=== PATIENT | male | born 1975 | race Caucasian/White ===

== ENCOUNTER 2017-02-17 10:01 | Emergency (ER) | payer OTHER ==
--- NOTE | 2017-02-17 10:40 | DIAGNOSTIC IMAGING REPORT ---
PROCEDURE: XR CHEST 1 VIEW INDICATION: SHORTNESS OF BREATH TECHNIQUE: Portable AP view 10:30 a.m. COMPARISON: None. FINDINGS: Patchy right lower lobe infiltrate Heart and mediastinum are normal. Thorax is normal. IMPRESSION: 1. Patchy right lower lobe infiltrate.
--- NOTE | 2017-02-17 11:14 | ED ORDER SUMMARY ---
..... Patient: CARLA NEAL OrderSheet [facility] VisitID: [id number] [address] [place] [address] 41y, M Registration Date/Time: 02/17/2017 ORDER SHEET Weight: 90.7 kg (stated) Allergies: No Known Drug Allergy GENERAL ORDERS: Chest 1V Urgent (10:02/17/2017 Latia Gilbert) (10:34 JBoardley R.N.) MEDICATION ORDERS: DuoNeb Neb Tx 1 unit dose (NOW) (10:02/17/2017 Latia Gilbert) (Ack 10:26 JBoardley R.N.) (10:34 JBoardley R.N.) Prednisone PO 40 mg (NOW) (10:02/17/2017 Latia Gilbert) (Ack 10:26 JBoardley R.N.) (10:34 JBoardley R.N.) Levofloxacin PO 500 mg (NOW) (10:02/17/2017 Latia Gilbert) (Ack 10:26 JBoardley R.N.) (10:34 JBoardley R.N.) IV FLUIDS: ORDER SHEET NOTES: [Electronically signed by Jono Tinsley R.N. (11:02/17/2017)] [Electronically signed by Jerry Kinney Dr. (21:41 02/17/2017)] [Electronically locked/signed by Jono Tinsley R.N. (:02/17/2017)]
--- NOTE | 2017-02-17 11:14 | ED NURSING NOTES ---
Clinical Report - Nurses [facility] [address] [place] [address] 02/17/2017 10:02 Patient: CARLA NEAL TRIAGE Triage time 10:06. Acuity: LEVEL 4. Chief Complaint: COUGH. 10:06 02/17/17. 10:02/17/17. Alert. No acute distress. SEPSIS SCREEN: Sepsis Screen. Negative (no infection suspected/documented). RAY COMA SCORE: Ray Coma Scale: 15- eyes open spontaneously (4); best verbal response- oriented x 4 (5); best motor response- obeys commands (6). --10:09 Jono Tinsley R.N. 10:06 02/17/17. BP: 164/88. HR: 81. RR: 16. O2 saturation: 98% on room air. Temp: 98 F (oral). Pain level now: 0/10. --10:09 Jono Tinsley R.N. Weight: 90.7 kg stated. Height/Length: 72 inches Per Patient. BMI: 27.1. --10:07 Jono Tinsley R.N. Medications Methadone HCl Oral 112mg, daily. --10:08 Jono Tinsley R.N. Medication/allergy information source: the patient. --10:09 Jono Tinsley R.N. Allergies No Known Drug Allergy. --10:08 Jono Tinsley R.N. History Arrived by private vehicle. Historian: patient. Unaccompanied. Primary physician (NONE). 10:06 02/17/17. ( Wednesday). 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 PAST MEDICAL HX: Immunizations not up to date. SOCIAL HX: Current every day heavy tobacco smoker (cigarette)- less than 1 pack per day. History of drug use. (methadone). No alcohol use. No infectious disease exposure. ABUSE ASSESSMENT: No report of abuse. FALL RISK ASSESSMENT: Fall risk assessment completed. No fall risk identified. NUTRITIONAL RISK ASSESSMENT: The nutritional risk assessment revealed no deficiencies. FUNCTIONAL ASSESSMENT: Functional assessment: no impairments noted. LEARNING NEEDS ASSESSMENT: The learning needs assessment revealed no barriers. SKIN INTEGRITY ASSESSMENT: Skin integrity risk assessment completed. No skin integrity risk identified. --10:09 Jono Tinsley R.N. PROBLEMS: Lifestyle / Substance Problems. Cellulitis. Immunizations. Lacerated kidney. Substance Abuse. Hypertension. Tetanus Status. --10:09 Jono Tinsley R.N. Abscess [Resolved]. --10:09 Jono Tinsley R.N. ADDITIONAL SURGERIES: Back Surgery. --10:09 Jono Tinsley R.N. Assessment 10:02/17/17. --10:09 Jono Tinsley R.N. Interventions 10:02/17/17. 10:02/17/17. ID and allergy band on patient. To treatment room. --10:09 Jono Tinsley R.N. PHYSICAL ASSESSMENT 10:02/17/17. Ambulatory to room. GENERAL / NEURO / PSYCH: Alert. Oriented X 4. Appears in no acute distress. RESPIRATORY: Mild respiratory distress. The patient can speak in full sentences. CVS: Capillary refill less than 2 seconds. SKIN: Skin is warm and dry. Skin is diaphoretic. --10:10 Jono Tinsley R.N. NURSING PROGRESS NOTES 10:02/17/17. The plan of care for this patient has been created. Patient gowned. Head of bed elevated. Reassurance given. Call light placed in reach. Side rails up x 2. Bed placed in lowest position. Brakes of bed on. --10:10 Jono Tinsley R.N. 10:02/17/17. Patient ready for evaluation- chart flagged and notification provided. --10:10 Jono Tinsley R.N. 10:29 02/17/2017 Duoneb (Ipratropium-Albuterol) Neb TX 1 unit dose given. Given by the nurse. Allergies verified and confirmed 5 rights. --10:34 Jono Tinsley R.N. 10:34 02/17/2017 Prednisone PO 40 mg given. Allergies verified and confirmed 5 rights. --10:34 Jono Tinsley R.N. 10:34 02/17/2017 Levofloxacin PO 500 mg given. Allergies verified and confirmed 5 rights. --10:34 Jono Tinsley R.N. 10:34 02/17/17. ( X-ray completed). --10:34 Jono Tinsley R.N. 10:36 02/17/17. Pulse oximeter and NIBP monitor placed on patient; monitor alarms on. --10:36 Jono Tinsley R.N. 10:35 02/17/17. BP: 130/78. HR: 69. RR: 18. O2 saturation: 99% on room air. Temp: 98.1 F (oral). Pain level now: 0/10. --10:36 Jono Tinsley R.N. 10:52 02/17/17. --10:52 Jono Tinsley R.N. 10:52 02/17/17. BP: 134/72. HR: 74. RR: 18. O2 saturation: 99% on room air. --10:52 Jono Tinsley R.N. 10:53 02/17/17. Reassessment after medication administered. Overall patient status is improved- he states feels better. --10:53 Jono Tinsley R.N. DISPOSITION / DISCHARGE 11:20 02/17/17. Departure time: 11:21. Condition at departure: improved. The goals identified in the patient's plan of care were met. No learning barriers present. Discharge instructions provided and reviewed with the patient. Reviewed warnings. Reviewed medication(s). Treatments reviewed. Patient verbalized understanding. Written instructions provided in [place]. The patient was discharged by the physician. He was discharged home and unaccompanied at time of discharge. He left the Emergency Department ambulatory and via private vehicle. Patient driving. FALL RISK ASSESSMENT: Fall risk assessment completed. No fall risk identified. --11:21 Jono Tinsley R.N. 11:20 02/17/17. BP: 143/71. HR: 80. RR: 14. O2 saturation: 100% on room air. Temp: 98.2 F (oral). Pain level now: 0/10. --11:21 Jono Tinsley R.N. Locked/Released at 02/17/2017 11:26 by Jono Tinsley R.N.
--- NOTE | 2017-02-17 11:14 | ED CLINICAL REPORT ---
Clinical Report - Physicians/Mid Levels [facility] [address] [place] [address] 02/17/2017 10:02 Patient: CARLA NEAL Time Seen: 10:07; initial patient contact. Arrived- By private vehicle. Historian- patient. HISTORY OF PRESENT ILLNESS Chief Complaint: COUGH. This started about 3 days ago and is still present (persistent). It was gradual in onset and has been constant. The illness is described as moderate. The patient has had sputum production, a cough, difficulty breathing and chills. No chest discomfort or pain, fever or nasal congestion or discharge. No sinus drainage. Additional history - No known contact with a sick individual. Similar symptoms previously: None. Recent medical care: Not recently seen/assessed. REVIEW OF SYSTEMS No pedal edema, calf pain or skin rash. All systems otherwise negative, except as recorded above. PAST HISTORY Lifestyle / Substance Problems. Cellulitis. Immunizations. Lacerated kidney. Substance Abuse. Hypertension. Abscess ADDITIONAL SURGERIES: Back Surgery. SOCIAL HISTORY Current every day smoker. History of drug use. Is a recovering addict. No alcohol use. ADDITIONAL NOTES The nursing notes have been reviewed. PHYSICAL EXAM Vital Signs: 02/17/2017 10:06 BP: 164/88. HR: 81. RR: 16. O2 saturation: 98%. Temp: 98 F. Pain level now: 0/10. Have been reviewed. Hypertensive. Heart rate normal. Respiratory rate normal. Temperature normal. Oxygen saturation normal. Appearance: Alert. No acute distress. Eyes: Eyes normal inspection. ENT: Pharynx normal. Neck: No JVD. CVS: Normal heart rate and rhythm. Heart sounds normal. Respiratory: Mild respiratory distress with accessory muscle use. Moderately prolonged expirations. Mildly decreased breath sounds diffusely over both lungs. Expiratory moderate bilateral wheezes diffusely. No rales or rhonchi. Skin: Normal skin color. No rash. Extremities: No calf tenderness. No lower extremity edema. Neuro: Oriented X 3. LABS, X-RAYS, AND EKG Chest X-ray: Infiltrate in the right lower lobe. Consistent with pneumonia. Views: AP. Technique: good. The X-rays were independently viewed by me and interpreted contemporaneously by me. Prior films were not available for comparison. Interpretation time: 11:04. PROGRESS AND PROCEDURES Course of Care: Prednisone 40 mg PO given. Levofloxacin 500 mg PO given. DuoNeb nebulizer treatment (1 unit dose) given. Physical exam findings are improved. Symptoms much better. Disposition: Discharged home in good and improved condition. Condition: good. CLINICAL IMPRESSION Bacterial pneumonia. Empiric antibiotics given in the ED and prescribed. No hypoxemia, respiratory failure or sepsis. Acute exacerbation of COPD (emphysematous) INSTRUCTIONS Do not smoke. Seek medical help to quit smoking. Your Current Medications: CONTINUE TAKING THE FOLLOWING MEDICATIONS: Methadone HCl Oral : 112mg daily. Prescription Medications: Levaquin 750 mg: take 1 tab orally every day for 6 days. No refills. Substitution is permissible. (Start on 02/18/17) Albuterol HFA oral inhaler: inhale 2 puffs every 4 hours as needed for wheezing, difficulty breathing or shortness of breath. Dispense one (1) unit. No refill. Prednisone 20 mg: take 2 orally every day for 4 days. Dispense sufficient quantity. No refills. (Start on 02/18/17) Follow-up: Screening today revealed the patient's blood pressure to be in the pre-hypertensive range. The patient should follow up with a primary care provider for blood pressure management. Follow-up with: [facility], , , [address], [facility], [id number] Follow up in two days. Call for an appointment. (Electronically signed by Jerry Kinney Dr. 02/17/2017 21:41)
--- NOTE | 2017-02-17 11:14 | ED ORDER SUMMARY ---
..... Patient: CARLA NEAL OrderSheet [facility] VisitID: [id number] [address] [place] [address] 41y, M Registration Date/Time: 02/17/2017 ORDER SHEET Weight: 90.7 kg (stated) Allergies: No Known Drug Allergy GENERAL ORDERS: Chest 1V Urgent (10:02/17/2017 Latia Gilbert) (10:34 JBoardley R.N.) MEDICATION ORDERS: DuoNeb Neb Tx 1 unit dose (NOW) (10:02/17/2017 Latia Gilbert) (Ack 10:26 JBoardley R.N.) (10:34 JBoardley R.N.) Prednisone PO 40 mg (NOW) (10:02/17/2017 Latia Gilbert) (Ack 10:26 JBoardley R.N.) (10:34 JBoardley R.N.) Levofloxacin PO 500 mg (NOW) (10:02/17/2017 Latia Gilbert) (Ack 10:26 JBoardley R.N.) (10:34 JBoardley R.N.) IV FLUIDS: ORDER SHEET NOTES: [Electronically signed by Jono Tinsley R.N. (11:02/17/2017)] [Electronically signed by Jerry Kinney Dr. (21:41 02/17/2017)] [Electronically locked/signed by Jono Tinsley R.N. (:02/17/2017)]
--- NOTE | 2017-02-17 11:14 | ED NURSING NOTES ---
Clinical Report - Nurses [facility] [address] [place] [address] 02/17/2017 10:02 Patient: CARLA NEAL TRIAGE Triage time 10:06. Acuity: LEVEL 4. Chief Complaint: COUGH. 10:06 02/17/17. 10:02/17/17. Alert. No acute distress. SEPSIS SCREEN: Sepsis Screen. Negative (no infection suspected/documented). RAY COMA SCORE: Ray Coma Scale: 15- eyes open spontaneously (4); best verbal response- oriented x 4 (5); best motor response- obeys commands (6). --10:09 Jono Tinsley R.N. 10:06 02/17/17. BP: 164/88. HR: 81. RR: 16. O2 saturation: 98% on room air. Temp: 98 F (oral). Pain level now: 0/10. --10:09 Jono Tinsley R.N. Weight: 90.7 kg stated. Height/Length: 72 inches Per Patient. BMI: 27.1. --10:07 Jono Tinsley R.N. Medications Methadone HCl Oral 112mg, daily. --10:08 Jono Tinsley R.N. Medication/allergy information source: the patient. --10:09 Jono Tinsley R.N. Allergies No Known Drug Allergy. --10:08 Jono Tinsley R.N. History Arrived by private vehicle. Historian: patient. Unaccompanied. Primary physician (NONE). 10:06 02/17/17. ( Wednesday). 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 PAST MEDICAL HX: Immunizations not up to date. SOCIAL HX: Current every day heavy tobacco smoker (cigarette)- less than 1 pack per day. History of drug use. (methadone). No alcohol use. No infectious disease exposure. ABUSE ASSESSMENT: No report of abuse. FALL RISK ASSESSMENT: Fall risk assessment completed. No fall risk identified. NUTRITIONAL RISK ASSESSMENT: The nutritional risk assessment revealed no deficiencies. FUNCTIONAL ASSESSMENT: Functional assessment: no impairments noted. LEARNING NEEDS ASSESSMENT: The learning needs assessment revealed no barriers. SKIN INTEGRITY ASSESSMENT: Skin integrity risk assessment completed. No skin integrity risk identified. --10:09 Jono Tinsley R.N. PROBLEMS: Lifestyle / Substance Problems. Cellulitis. Immunizations. Lacerated kidney. Substance Abuse. Hypertension. Tetanus Status. --10:09 Jono Tinsley R.N. Abscess [Resolved]. --10:09 Jono Tinsley R.N. ADDITIONAL SURGERIES: Back Surgery. --10:09 Jono Tinsley R.N. Assessment 10:02/17/17. --10:09 Jono Tinsley R.N. Interventions 10:02/17/17. 10:02/17/17. ID and allergy band on patient. To treatment room. --10:09 Jono Tinsley R.N. PHYSICAL ASSESSMENT 10:02/17/17. Ambulatory to room. GENERAL / NEURO / PSYCH: Alert. Oriented X 4. Appears in no acute distress. RESPIRATORY: Mild respiratory distress. The patient can speak in full sentences. CVS: Capillary refill less than 2 seconds. SKIN: Skin is warm and dry. Skin is diaphoretic. --10:10 Jono Tinsley R.N. NURSING PROGRESS NOTES 10:02/17/17. The plan of care for this patient has been created. Patient gowned. Head of bed elevated. Reassurance given. Call light placed in reach. Side rails up x 2. Bed placed in lowest position. Brakes of bed on. --10:10 Jono Tinsley R.N. 10:02/17/17. Patient ready for evaluation- chart flagged and notification provided. --10:10 Jono Tinsley R.N. 10:29 02/17/2017 Duoneb (Ipratropium-Albuterol) Neb TX 1 unit dose given. Given by the nurse. Allergies verified and confirmed 5 rights. --10:34 Jono Tinsley R.N. 10:34 02/17/2017 Prednisone PO 40 mg given. Allergies verified and confirmed 5 rights. --10:34 Jono Tinsley R.N. 10:34 02/17/2017 Levofloxacin PO 500 mg given. Allergies verified and confirmed 5 rights. --10:34 Jono Tinsley R.N. 10:34 02/17/17. ( X-ray completed). --10:34 Jono Tinsley R.N. 10:36 02/17/17. Pulse oximeter and NIBP monitor placed on patient; monitor alarms on. --10:36 Jono Tinsley R.N. 10:35 02/17/17. BP: 130/78. HR: 69. RR: 18. O2 saturation: 99% on room air. Temp: 98.1 F (oral). Pain level now: 0/10. --10:36 Jono Tinsley R.N. 10:52 02/17/17. --10:52 Jono Tinsley R.N. 10:52 02/17/17. BP: 134/72. HR: 74. RR: 18. O2 saturation: 99% on room air. --10:52 Jono Tinsley R.N. 10:53 02/17/17. Reassessment after medication administered. Overall patient status is improved- he states feels better. --10:53 Jono Tinsley R.N. DISPOSITION / DISCHARGE 11:20 02/17/17. Departure time: 11:21. Condition at departure: improved. The goals identified in the patient's plan of care were met. No learning barriers present. Discharge instructions provided and reviewed with the patient. Reviewed warnings. Reviewed medication(s). Treatments reviewed. Patient verbalized understanding. Written instructions provided in [place]. The patient was discharged by the physician. He was discharged home and unaccompanied at time of discharge. He left the Emergency Department ambulatory and via private vehicle. Patient driving. FALL RISK ASSESSMENT: Fall risk assessment completed. No fall risk identified. --11:21 Jono Tinsley R.N. 11:20 02/17/17. BP: 143/71. HR: 80. RR: 14. O2 saturation: 100% on room air. Temp: 98.2 F (oral). Pain level now: 0/10. --11:21 Jono Tinsley R.N. Locked/Released at 02/17/2017 11:26 by Jono Tinsley R.N.
--- NOTE | 2017-02-17 11:14 | ED CLINICAL REPORT ---
Clinical Report - Physicians/Mid Levels [facility] [address] [place] [address] 02/17/2017 10:02 Patient: CARLA NEAL Time Seen: 10:07; initial patient contact. Arrived- By private vehicle. Historian- patient. HISTORY OF PRESENT ILLNESS Chief Complaint: COUGH. This started about 3 days ago and is still present (persistent). It was gradual in onset and has been constant. The illness is described as moderate. The patient has had sputum production, a cough, difficulty breathing and chills. No chest discomfort or pain, fever or nasal congestion or discharge. No sinus drainage. Additional history - No known contact with a sick individual. Similar symptoms previously: None. Recent medical care: Not recently seen/assessed. REVIEW OF SYSTEMS No pedal edema, calf pain or skin rash. All systems otherwise negative, except as recorded above. PAST HISTORY Lifestyle / Substance Problems. Cellulitis. Immunizations. Lacerated kidney. Substance Abuse. Hypertension. Abscess ADDITIONAL SURGERIES: Back Surgery. SOCIAL HISTORY Current every day smoker. History of drug use. Is a recovering addict. No alcohol use. ADDITIONAL NOTES The nursing notes have been reviewed. PHYSICAL EXAM Vital Signs: 02/17/2017 10:06 BP: 164/88. HR: 81. RR: 16. O2 saturation: 98%. Temp: 98 F. Pain level now: 0/10. Have been reviewed. Hypertensive. Heart rate normal. Respiratory rate normal. Temperature normal. Oxygen saturation normal. Appearance: Alert. No acute distress. Eyes: Eyes normal inspection. ENT: Pharynx normal. Neck: No JVD. CVS: Normal heart rate and rhythm. Heart sounds normal. Respiratory: Mild respiratory distress with accessory muscle use. Moderately prolonged expirations. Mildly decreased breath sounds diffusely over both lungs. Expiratory moderate bilateral wheezes diffusely. No rales or rhonchi. Skin: Normal skin color. No rash. Extremities: No calf tenderness. No lower extremity edema. Neuro: Oriented X 3. LABS, X-RAYS, AND EKG Chest X-ray: Infiltrate in the right lower lobe. Consistent with pneumonia. Views: AP. Technique: good. The X-rays were independently viewed by me and interpreted contemporaneously by me. Prior films were not available for comparison. Interpretation time: 11:04. PROGRESS AND PROCEDURES Course of Care: Prednisone 40 mg PO given. Levofloxacin 500 mg PO given. DuoNeb nebulizer treatment (1 unit dose) given. Physical exam findings are improved. Symptoms much better. Disposition: Discharged home in good and improved condition. Condition: good. CLINICAL IMPRESSION Bacterial pneumonia. Empiric antibiotics given in the ED and prescribed. No hypoxemia, respiratory failure or sepsis. Acute exacerbation of COPD (emphysematous) INSTRUCTIONS Do not smoke. Seek medical help to quit smoking. Your Current Medications: CONTINUE TAKING THE FOLLOWING MEDICATIONS: Methadone HCl Oral : 112mg daily. Prescription Medications: Levaquin 750 mg: take 1 tab orally every day for 6 days. No refills. Substitution is permissible. (Start on 02/18/17) Albuterol HFA oral inhaler: inhale 2 puffs every 4 hours as needed for wheezing, difficulty breathing or shortness of breath. Dispense one (1) unit. No refill. Prednisone 20 mg: take 2 orally every day for 4 days. Dispense sufficient quantity. No refills. (Start on 02/18/17) Follow-up: Screening today revealed the patient's blood pressure to be in the pre-hypertensive range. The patient should follow up with a primary care provider for blood pressure management. Follow-up with: [facility], , , [address], [facility], [id number] Follow up in two days. Call for an appointment. (Electronically signed by Jerry Kinney Dr. 02/17/2017 21:41)
--- NOTE | 2017-02-17 21:41 | ED MAR SUMMARY ---
..... Medication Administration Record [facility] [address] [place] [address] Patient: CARLA NEAL Visit ID: [id number] 41y, M Weight: 90.7 kg Height/Length: 72 in BMI: 27.1 ALLERGIES: No Known Drug Allergy Given 10:02/17/2017 Jono Tinsley R.N. Medication Administered: DUONEB [NEB TX] (IPRATROPIUM-ALBUTEROL), Dose: 1 unit dose Neb TX. Medication Ordered: DuoNeb Neb Tx 1 unit dose (NOW). Given 10:02/17/2017 Jono Tinsley R.N. Medication Administered: PREDNISONE [PO], Dose: 40 mg PO. Medication Ordered: Prednisone PO 40 mg (NOW). Given 10:02/17/2017 Jono Tinsley R.N. Medication Administered: LEVOFLOXACIN [PO], Dose: 500 mg PO. Medication Ordered: Levofloxacin PO 500 mg (NOW).
--- NOTE | 2017-02-17 21:41 | ED MAR SUMMARY ---
..... Medication Administration Record [facility] [address] [place] [address] Patient: CARLA NEAL Visit ID: [id number] 41y, M Weight: 90.7 kg Height/Length: 72 in BMI: 27.1 ALLERGIES: No Known Drug Allergy Given 10:02/17/2017 Jono Tinsley R.N. Medication Administered: DUONEB [NEB TX] (IPRATROPIUM-ALBUTEROL), Dose: 1 unit dose Neb TX. Medication Ordered: DuoNeb Neb Tx 1 unit dose (NOW). Given 10:02/17/2017 Jono Tinsley R.N. Medication Administered: PREDNISONE [PO], Dose: 40 mg PO. Medication Ordered: Prednisone PO 40 mg (NOW). Given 10:02/17/2017 Jono Tinsley R.N. Medication Administered: LEVOFLOXACIN [PO], Dose: 500 mg PO. Medication Ordered: Levofloxacin PO 500 mg (NOW).
--- NOTE | 2017-02-17 21:41 | ED MED RECONCILIATION SUMMARY ---
Patient: CARLA NEAL Medication Reconciliation Report [facility] VisitID: [id number] [address] [place] [address] 41y, M Registration Date/Time: 02/17/2017 Weight: 90.7 kg Height/Length: 72 in. BMI: 27.1 ALLERGIES: No Known Drug Allergy The patient's Home Medications are listed below: CONTINUE TAKING THE FOLLOWING MEDICATIONS: Methadone HCl Oral 112mg, daily The source(s) of the original Home Medication information: patient The following Medications were given to the patient in the Emergency Department: Duoneb [Neb Tx] Neb TX 1 unit dose, administered: 02/17/2017 10:29:00 AM Prednisone [PO] PO 40 mg, administered: 02/17/2017 10:34:00 AM Levofloxacin [PO] PO 500 mg, administered: 02/17/2017 10:34:00 AM The following Medications were prescribed to the patient: Levaquin 750 mg: take 1 tab orally every day for 6 days. No refills. Substitution is permissible.(Start on 02/18/17) -- Jerry Kinney Dr. Albuterol HFA oral inhaler: inhale 2 puffs every 4 hours as needed for wheezing, difficulty breathing or shortness of breath. Dispense one (1) unit. No refill. -- Jerry Kinney Dr. Prednisone 20 mg: take 2 orally every day for 4 days. Dispense sufficient quantity. No refills.(Start on 02/18/17) -- Jerry Kinney Dr.
--- NOTE | 2017-02-17 21:41 | ED MED RECONCILIATION SUMMARY ---
Patient: CARLA NEAL Medication Reconciliation Report [facility] VisitID: [id number] [address] [place] [address] 41y, M Registration Date/Time: 02/17/2017 Weight: 90.7 kg Height/Length: 72 in. BMI: 27.1 ALLERGIES: No Known Drug Allergy The patient's Home Medications are listed below: CONTINUE TAKING THE FOLLOWING MEDICATIONS: Methadone HCl Oral 112mg, daily The source(s) of the original Home Medication information: patient The following Medications were given to the patient in the Emergency Department: Duoneb [Neb Tx] Neb TX 1 unit dose, administered: 02/17/2017 10:29:00 AM Prednisone [PO] PO 40 mg, administered: 02/17/2017 10:34:00 AM Levofloxacin [PO] PO 500 mg, administered: 02/17/2017 10:34:00 AM The following Medications were prescribed to the patient: Levaquin 750 mg: take 1 tab orally every day for 6 days. No refills. Substitution is permissible.(Start on 02/18/17) -- Jerry Kinney Dr. Albuterol HFA oral inhaler: inhale 2 puffs every 4 hours as needed for wheezing, difficulty breathing or shortness of breath. Dispense one (1) unit. No refill. -- Jerry Kinney Dr. Prednisone 20 mg: take 2 orally every day for 4 days. Dispense sufficient quantity. No refills.(Start on 02/18/17) -- Jerry Kinney Dr.
--- NOTE | 2017-02-17 21:41 | ED DISCHARGE INSTRUCTIONS ---
Patient: CARLA NEAL General Instructions [facility] VisitID: [id number] [address] [place] [address] 41y, M Registration Date/Time: 02/17/2017 Bacterial pneumonia. Empiric antibiotics given in the ED and prescribed. No hypoxemia, respiratory failure or sepsis. Acute exacerbation of COPD (emphysematous) INSTRUCTIONS Do not smoke. Seek medical help to quit smoking. Your Current Medications: CONTINUE TAKING THE FOLLOWING MEDICATIONS: Methadone HCl Oral : 112mg daily. Prescription Medications: Levaquin 750 mg: take 1 tab orally every day for 6 days. No refills. Substitution is permissible. (Start on 02/18/17) Albuterol HFA oral inhaler: inhale 2 puffs every 4 hours as needed for wheezing, difficulty breathing or shortness of breath. Dispense one (1) unit. No refill. Prednisone 20 mg: take 2 orally every day for 4 days. Dispense sufficient quantity. No refills. (Start on 02/18/17) Follow-up: Screening today revealed the patient's blood pressure to be in the pre-hypertensive range. The patient should follow up with a primary care provider for blood pressure management. Follow-up with: [facility], , , [address], [facility], [id number] Follow up in two days. Call for an appointment. ADDITIONAL INFORMATION COPD Flare Both emphysema and chronic bronchitis are forms of chronic obstructive pulmonary disease (COPD). It is most often caused by many years of smoking tobacco. Many things can make your lung disease suddenly get worse. These causes include the common cold, pneumonia, acute bronchitis, missing doses of your regular breathing medicines, or being around smoke, dust, or other air pollutants. A COPD flare may last 7 to 14 days. Your doctor may prescribe medicineto relax your airways and prevent wheezing. Your doctor may also prescribe antibiotics if he or she thinks you havea bacterial infection. Prednisone can helpease inflammation in a severe attack. Home care Here are things you can do at home: Drink lots of water or other fluids (at least 10 glasses a day) during an attack. This will loosen lung secretions and make it easier to breathe. If you have heart or kidney disease, check with your doctor before you drink extra amounts of fluids. Take prescribed medicine exactly at the times advised. If you have a hand-held inhaler or aerosol breathing medicine, don't use it more than once every 4 hours, unless your doctor tells you to. If you were givenan antibiotic or prednisone, take all of the medicine even if you are feeling better after a few days. Don't smoke. Avoid being aroundthe smoke of others. If you were given an inhaler, use it exactly as directed. If you need to use it more often than prescribed, your condition may be getting worse. Call your doctor. Follow-up care Follow up with your health care provider.If you are 65 or older or have chronic asthma or COPD, you should get a single dose of the pneumococcal vaccine and aflu shot each year. You may need a second dose of the pneumococcal vaccine if you had the first dose at a younger age. Your health care provider will let you know if you need a second dose. For all other people, the usual dose for the pneumococcal vaccine is 1 or 2 shots. Yourprovider can discuss this with you. When to seek medical care Get prompt medical attention ifany of these occur: Increased wheezing or shortness of breath Need to use your inhalers more often than usual without relief Fever of 100.4F(38C) or higher, or as directed by your health care provider Coughing up lots of dark-colored or bloody sputum (mucus) Chest pain with each breath You do not start to improve within 24 hours Pneumonia (Adult) Pneumonia is an infection deep within the lung, in the small air sacs (alveoli). It may be due to a virus or bacteria and is usually treated with an antibiotic. Severe cases require treatment in the hospital. Milder cases can be treated at home. Symptoms usually start to improve during the first2 days of treatment. Home Care: Rest at home for the first 23 days or until you feel stronger. When resuming activity, dont let yourself become overly tired. Avoid exposure to cigarette smoke (yours or others). You may use acetaminophen (Tylenol) or ibuprofen (Motrin, Advil) to control fever or pain, unless another medicine was prescribed. [NOTE: If you have chronic liver or kidney disease or ever had a stomach ulcer or GI bleeding, talk with your doctor before using these medicines.] (Aspirin should never be used in anyone under 18 years of age who is ill with a fever. It may cause severe liver damage.) Your appetite may be poor so a light diet is fine. Keep well hydrated by drinking 68 glasses of fluids per day (water, sport drinks such as Gatorade, sodas without caffeine, juices, tea, soup, etc.). This will help loosen secretions in the lung, making it easier for you to cough up the phlegm (sputum). If you also have heart or kidney disease, check with your doctor before you drink extra amounts of fluids. Finish all antibiotic medicine prescribed, even if you are feeling better after a few days. Follow Up with your doctor in the next 23 days (or as advised) to be sure you are responding properly to the medicine. [NOTE: If you are age 65 or older, or if you have chronic lung disease (asthma, emphysema or COPD), we recommendthe pneumococcal vaccination and a yearlyinfluenzavaccination(flu-shot) every . Ask your doctor about this.] Get Prompt Medical Attention if any of the following occur: Not getting better within the first 48 hours of treatment Increasing shortness of breath or rapid breathing (over 25 breaths/minute) Coughing up blood or increasing chest pain with breathing Fever of 100.4F (38C) oral or higher, not better with fever medication Increasing weakness, dizziness or fainting Increasing thirst or dry mouth Sinus pain, headache or a stiff neck Chest pain not caused by coughing How To Quit Smoking Smoking is one of the hardest habits to break. About half of all those who have ever smoked have been able to quit, and most of those (about 70%) who still smoke want to quit. Here are some of the best ways to stop smoking. Keep Trying: It takes most smokers about 8 tries before they are finally able to fully quit. So, the more often you try and fail, the better your chance of quitting the next time! So, don't give up! Go Cold [place]: Most ex-smokers quit cold turkey. Trying to cut back gradually doesn't seem to work as well, perhaps because it continues the smoking habit. Also, it is possible to fool yourself by inhaling more while smoking fewer cigarettes. This results in the same amount of nicotine in your body! Get Support: Support programs can make an important difference, especially for the heavy smoker. These groups offer lectures, methods to change your behavior and peer support. Call the free national Quitline for more information. 387-HXAX-DVV (642-193-7982). Low-cost or free programs are offered by many hospitals, local chapters of the [place] [employer] (812-528-4272) and the [place] [employer] (279-398-5756). Support at home is important too. Non-smokers can help by offering praise and encouragement. If the smoker fails to quit, encourage them to try again! Uvsi-Hpo-[id number] Medicines: For those who can't quit on their own, Nicotine Replacement Therapy (NRT) may make quitting much easier. Certain aids such as the nicotine patch, gum and lozenge are available without a prescription. However, it is best to use these under the guidance of your doctor. The skin patch provides a steady supply of nicotine to the body. Nicotine gum and lozenge gives temporary bursts of low levels of nicotine. Both methods take the edge off the craving for cigarettes. WARNING: If you feel symptoms of nicotine overdose, such as nausea, vomiting, dizziness, weakness, or fast heartbeat, stop using these and see your doctor. Prescription Medicines: After evaluating your smoking patterns and prior attempts at quitting, your doctor may offer a prescription medicine such as bupropion (Zyban, Wellbutrin), varenicline (Chantix, Champix), a niocotine inhaler or nasal spray. Each has its unique advantage and side effects which your doctor can review with you. Health Benefits Of Quitting: The benefits of quitting start right away and keep improving the longer you go without smokin minutes: blood pressure and pulse return to normal 8 hours: oxygen levels return to normal 2 days: ability to smell and taste begins to improve as damaged nerves start to regrow 2-3 weeks: circulation and lung function improves 1-9 months: decreased cough, congestion and shortness of breath; less tired 1 year: risk of heart attack decreases by half 5 years: risk of lung cancer decreases by half; risk of stroke becomes the same as a non-smoker For information about how to quit smoking, visit the following links: National Cancer [place] , Clearing the Air, Quit Smoking Today - an online booklet. http://www.smokefree.gov/pubs/clearing_the_air.pdf Smokefree.gov http://smokefree.gov/ QuitNet http://www.quitnet.com/ Levofloxacin Oral tablet What is this medicine? LEVOFLOXACIN (mike elisha DANYELLE chaves) is a quinolone antibiotic. It is used to treat certain kinds of bacterial infections. It will not work for colds, flu, or other viral infections. How should I use this medicine? Take this medicine by mouth with a full glass of water. Follow the directions on the prescription label. This medicine can be taken with or without food. Take your medicine at regular intervals. Do not take your medicine more often than directed. Do not skip doses or stop your medicine early even if you feel better. Do not stop taking except on your doctor's advice. A special MedGuide will be given to you by the pharmacist with each prescription and refill. Be sure to read this information carefully each time. Talk to your zoo caretaker regarding the use of this medicine in children. While this drug may be prescribed for children as young as 6 months for selected conditions, precautions do apply. What side effects may I notice from receiving this medicine? Side effects that you should report to your doctor or health district manager primary care sales as soon as possible: -allergic reactions like skin rash or hives, swelling of the face, lips, or tongue -changes in vision -confusion, nightmares or hallucinations -difficulty breathing -irregular heartbeat, chest pain -joint, muscle or tendon pain -pain or difficulty passing urine -persistent headache with or without blurred vision -redness, blistering, peeling or loosening of the skin, including inside the mouth -seizures -unusual pain, numbness, tingling, or weakness -vaginal irritation, discharge Side effects that usually do not require medical attention (report to your doctor or health district manager primary care sales if they continue or are bothersome): -diarrhea -dry mouth -headache -stomach upset, nausea -trouble sleeping What may interact with this medicine? Do not take this medicine with any of the following medications: - arsenic trioxide - chloroquine - droperidol - medicines for irregular heart rhythm like amiodarone, disopyramide, dofetilide, flecainide, quinidine, procainamide, sotalol - some medicines for depression or mental problems like phenothiazines, pimozide, and ziprasidone This medicine may also interact with the following medications: - amoxapine -antacids - cisapride - dairy products - didanosine (ddI) buffered tablets or powder - haloperidol - multivitamins -NSAIDS, medicines for pain and inflammation, like ibuprofen or naproxen - retinoid products like tretinoin or isotretinoin - risperidone - some other antibiotics like clarithromycin or erythromycin - sucralfate - theophylline - warfarin What if I miss a dose? If you miss a dose, take it as soon as you remember. If it is almost time for your next dose, take only that dose. Do not take double or extra doses. Where should I keep my medicine? Keep out of the reach of children. Store at room temperature between 15 and 30 degrees C (59 and 86 degrees F). Keep in a tightly closed container. Throw away any unused medicine after the expiration date. What should I tell my health care provider before I take this medicine? They need to know if you have any of these conditions: cerebral disease irregular heartbeat kidney disease seizure disorder an unusual or allergic reaction to levofloxacin, other antibiotics or medicines, foods, dyes, or preservatives or trying to get breast-feeding What should I watch for while using this medicine? Tell your doctor or health district manager primary care sales if your symptoms do not improve or if they get worse. Drink several glasses of water a day and cut down on drinks that contain caffeine. You must not get dehydrated while taking this medicine. You may get drowsy or dizzy. Do not drive, use machinery, or do anything that needs mental alertness until you know how this medicine affects you. Do not sit or stand up quickly, especially if you are an older patient. This reduces the risk of dizzy or fainting spells. This medicine can make you more sensitive to the sun. Keep out of the sun. If you cannot avoid being in the sun, wear protective clothing and use a sunscreen. Do not use sun lamps or tanning beds/booths. Contact your doctor if you get a sunburn. If you are a diabetic monitor your blood glucose carefully. If you get an unusual reading stop taking this medicine and call your doctor right away. Do not treat diarrhea with kgpm-rrf-xapegly products. Contact your doctor if you have diarrhea that lasts more than 2 days or if the diarrhea is severe and watery. Avoid antacids, calcium, iron, and zinc products for 2 hours before and 2 hours after taking a dose of this medicine. Albuterol Sulfate Pressurized inhalation, suspension What is this medicine? ALBUTEROL (al BYOO ter ole) is a bronchodilator. It helps open up the airways in your lungs to make it easier to breathe. This medicine is used to treat and to prevent bronchospasm. How should I use this medicine? This medicine is for inhalation through the mouth. Follow the directions on your prescription label. Take your medicine at regular intervals. Do not use more often than directed. Make sure that you are using your inhaler correctly. Ask you doctor or health care provider if you have any questions. Talk to your zoo caretaker regarding the use of this medicine in children. Special care may be needed. What side effects may I notice from receiving this medicine? Side effects that you should report to your doctor or health district manager primary care sales as soon as possible: allergic reactions like skin rash, itching or hives, swelling of the face, lips, or tongue breathing problems chest pain feeling faint or lightheaded, falls high blood pressure irregular heartbeat fever muscle cramps or weakness pain, tingling, numbness in the hands or feet vomiting Side effects that usually do not require medical attention (report to your doctor or health district manager primary care sales if they continue or are bothersome): cough difficulty sleeping headache nervousness or trembling stomach upset stuffy or runny nose throat irritation unusual taste What may interact with this medicine? anti-infectives like chloroquine and pentamidine caffeine cisapride diuretics medicines for colds medicines for depression or for emotional or psychotic conditions medicines for weight loss including some herbal products methadone some antibiotics like clarithromycin, erythromycin, levofloxacin, and linezolid some heart medicines steroid hormones like dexamethasone, cortisone, hydrocortisone theophylline thyroid hormones What if I miss a dose? If you miss a dose, use it as soon as you can. If it is almost time for your next dose, use only that dose. Do not use double or extra doses. Where should I keep my medicine? Keep out of the reach of children. Store at room temperature between 15 and 30 degrees C (59 and 86 degrees F). The contents are under pressure and may burst when exposed to heat or flame. Do not freeze. This medicine does not work as well if it is too cold. Throw away any unused medicine after the expiration date. Inhalers need to be thrown away after the labeled number of puffs have been used or by the expiration date; whichever comes first. Ventolin HFA should be thrown away 12 months after removing from foil pouch. Check the instructions that come with your medicine. What should I tell my health care provider before I take this medicine? They need to know if you have any of the following conditions: diabetes heart disease or irregular heartbeat high blood pressure pheochromocytoma seizures thyroid disease an unusual or allergic reaction to albuterol, levalbuterol, sulfites, other medicines, foods, dyes, or preservatives or trying to get breast-feeding What should I watch for while using this medicine? Tell your doctor or health district manager primary care sales if your symptoms do not improve. Do not use extra albuterol. If your asthma or bronchitis gets worse while you are using this medicine, call your doctor right away. If your mouth gets dry try chewing sugarless gum or sucking hard candy. Drink water as directed. Prednisone Oral tablet What is this medicine? PREDNISONE (PRED ni sone) is a corticosteroid. It is commonly used to treat inflammation of the skin, joints, lungs, and other organs. Common conditions treated include asthma, allergies, and arthritis. It is also used for other conditions, such as blood disorders and diseases of the adrenal glands. How should I use this medicine? Take this medicine by mouth with a glass of water. Follow the directions on the prescription label. Take this medicine with food. If you are taking this medicine once a day, take it in the morning. Do not take more medicine than you are told to take. Do not suddenly stop taking your medicine because you may develop a severe reaction. Your doctor will tell you how much medicine to take. If your doctor wants you to stop the medicine, the dose may be slowly lowered over time to avoid any side effects. Talk to your zoo caretaker regarding the use of this medicine in children. Special care may be needed. What side effects may I notice from receiving this medicine? Side effects that you should report to your doctor or health district manager primary care sales as soon as possible: allergic reactions like skin rash, itching or hives, swelling of the face, lips, or tongue changes in emotions or moods changes in vision depressed mood eye pain fever or chills, cough, sore throat, pain or difficulty passing urine increased thirst swelling of ankles, feet Side effects that usually do not require medical attention (report to your doctor or health district manager primary care sales if they continue or are bothersome): confusion, excitement, restlessness headache nausea, vomiting skin problems, acne, thin and shiny skin trouble sleeping weight gain What may interact with this medicine? Do not take this medicine with any of the following medications: metyrapone mifepristone This medicine may also interact with the following medications: aminoglutethimide amphotericin B aspirin and aspirin-like medicines barbiturates certain medicines for diabetes, like glipizide or glyburide cholestyramine cholinesterase inhibitors cyclosporine digoxin diuretics ephedrine female hormones, like estrogens and control pills isoniazid ketoconazole NSAIDS, medicines for pain and inflammation, like ibuprofen or naproxen phenytoin rifampin toxoids vaccines warfarin What if I miss a dose? If you miss a dose, take it as soon as you can. If it is almost time for your next dose, talk to your doctor or health district manager primary care sales. You may need to miss a dose or take an extra dose. Do not take double or extra doses without advice. Where should I keep my medicine? Keep out of the reach of children. Store at room temperature between 15 and 30 degrees C (59 and 86 degrees F). Protect from light. Keep container tightly closed. Throw away any unused medicine after the expiration date. What should I tell my health care provider before I take this medicine? They need to know if you have any of these conditions: Lm's syndrome diabetes glaucoma heart disease high blood pressure infection (especially a virus infection such as chickenpox, cold sores, or herpes) kidney disease liver disease mental illness myasthenia gravis osteoporosis seizures stomach or intestine problems thyroid disease an unusual or allergic reaction to lactose, prednisone, other medicines, foods, dyes, or preservatives or trying to get breast-feeding What should I watch for while using this medicine? Visit your doctor or health district manager primary care sales for regular checks on your progress. If you are taking this medicine over a prolonged period, carry an identification card with your name and address, the type and dose of your medicine, and your doctor's name and address. This medicine may increase your risk of getting an infection. Tell your doctor or health district manager primary care sales if you are around anyone with measles or chickenpox, or if you develop sores or blisters that do not heal properly. If you are going to have surgery, tell your doctor or health district manager primary care sales that you have taken this medicine within the last twelve months. Ask your doctor or health district manager primary care sales about your diet. You may need to lower the amount of salt you eat. This medicine may affect blood sugar levels. If you have diabetes, check with your doctor or health district manager primary care sales before you change your diet or the dose of your diabetic medicine. You have been given the following additional information: COPD Flare Pneumonia (Adult) Smoking Cessation Levofloxacin Oral tablet Albuterol Sulfate Pressurized inhalation, suspension Prednisone Oral tablet (Electronically signed by Jerry Kinney Dr. 02/17/2017 21:41)
--- NOTE | 2017-02-17 21:41 | ED DISCHARGE INSTRUCTIONS ---
Patient: CARLA NEAL General Instructions [facility] VisitID: [id number] [address] [place] [address] 41y, M Registration Date/Time: 02/17/2017 Bacterial pneumonia. Empiric antibiotics given in the ED and prescribed. No hypoxemia, respiratory failure or sepsis. Acute exacerbation of COPD (emphysematous) INSTRUCTIONS Do not smoke. Seek medical help to quit smoking. Your Current Medications: CONTINUE TAKING THE FOLLOWING MEDICATIONS: Methadone HCl Oral : 112mg daily. Prescription Medications: Levaquin 750 mg: take 1 tab orally every day for 6 days. No refills. Substitution is permissible. (Start on 02/18/17) Albuterol HFA oral inhaler: inhale 2 puffs every 4 hours as needed for wheezing, difficulty breathing or shortness of breath. Dispense one (1) unit. No refill. Prednisone 20 mg: take 2 orally every day for 4 days. Dispense sufficient quantity. No refills. (Start on 02/18/17) Follow-up: Screening today revealed the patient's blood pressure to be in the pre-hypertensive range. The patient should follow up with a primary care provider for blood pressure management. Follow-up with: [facility], , , [address], [facility], [id number] Follow up in two days. Call for an appointment. ADDITIONAL INFORMATION COPD Flare Both emphysema and chronic bronchitis are forms of chronic obstructive pulmonary disease (COPD). It is most often caused by many years of smoking tobacco. Many things can make your lung disease suddenly get worse. These causes include the common cold, pneumonia, acute bronchitis, missing doses of your regular breathing medicines, or being around smoke, dust, or other air pollutants. A COPD flare may last 7 to 14 days. Your doctor may prescribe medicineto relax your airways and prevent wheezing. Your doctor may also prescribe antibiotics if he or she thinks you havea bacterial infection. Prednisone can helpease inflammation in a severe attack. Home care Here are things you can do at home: Drink lots of water or other fluids (at least 10 glasses a day) during an attack. This will loosen lung secretions and make it easier to breathe. If you have heart or kidney disease, check with your doctor before you drink extra amounts of fluids. Take prescribed medicine exactly at the times advised. If you have a hand-held inhaler or aerosol breathing medicine, don't use it more than once every 4 hours, unless your doctor tells you to. If you were givenan antibiotic or prednisone, take all of the medicine even if you are feeling better after a few days. Don't smoke. Avoid being aroundthe smoke of others. If you were given an inhaler, use it exactly as directed. If you need to use it more often than prescribed, your condition may be getting worse. Call your doctor. Follow-up care Follow up with your health care provider.If you are 65 or older or have chronic asthma or COPD, you should get a single dose of the pneumococcal vaccine and aflu shot each year. You may need a second dose of the pneumococcal vaccine if you had the first dose at a younger age. Your health care provider will let you know if you need a second dose. For all other people, the usual dose for the pneumococcal vaccine is 1 or 2 shots. Yourprovider can discuss this with you. When to seek medical care Get prompt medical attention ifany of these occur: Increased wheezing or shortness of breath Need to use your inhalers more often than usual without relief Fever of 100.4F(38C) or higher, or as directed by your health care provider Coughing up lots of dark-colored or bloody sputum (mucus) Chest pain with each breath You do not start to improve within 24 hours Pneumonia (Adult) Pneumonia is an infection deep within the lung, in the small air sacs (alveoli). It may be due to a virus or bacteria and is usually treated with an antibiotic. Severe cases require treatment in the hospital. Milder cases can be treated at home. Symptoms usually start to improve during the first2 days of treatment. Home Care: Rest at home for the first 23 days or until you feel stronger. When resuming activity, dont let yourself become overly tired. Avoid exposure to cigarette smoke (yours or others). You may use acetaminophen (Tylenol) or ibuprofen (Motrin, Advil) to control fever or pain, unless another medicine was prescribed. [NOTE: If you have chronic liver or kidney disease or ever had a stomach ulcer or GI bleeding, talk with your doctor before using these medicines.] (Aspirin should never be used in anyone under 18 years of age who is ill with a fever. It may cause severe liver damage.) Your appetite may be poor so a light diet is fine. Keep well hydrated by drinking 68 glasses of fluids per day (water, sport drinks such as Gatorade, sodas without caffeine, juices, tea, soup, etc.). This will help loosen secretions in the lung, making it easier for you to cough up the phlegm (sputum). If you also have heart or kidney disease, check with your doctor before you drink extra amounts of fluids. Finish all antibiotic medicine prescribed, even if you are feeling better after a few days. Follow Up with your doctor in the next 23 days (or as advised) to be sure you are responding properly to the medicine. [NOTE: If you are age 65 or older, or if you have chronic lung disease (asthma, emphysema or COPD), we recommendthe pneumococcal vaccination and a yearlyinfluenzavaccination(flu-shot) every . Ask your doctor about this.] Get Prompt Medical Attention if any of the following occur: Not getting better within the first 48 hours of treatment Increasing shortness of breath or rapid breathing (over 25 breaths/minute) Coughing up blood or increasing chest pain with breathing Fever of 100.4F (38C) oral or higher, not better with fever medication Increasing weakness, dizziness or fainting Increasing thirst or dry mouth Sinus pain, headache or a stiff neck Chest pain not caused by coughing How To Quit Smoking Smoking is one of the hardest habits to break. About half of all those who have ever smoked have been able to quit, and most of those (about 70%) who still smoke want to quit. Here are some of the best ways to stop smoking. Keep Trying: It takes most smokers about 8 tries before they are finally able to fully quit. So, the more often you try and fail, the better your chance of quitting the next time! So, don't give up! Go Cold [place]: Most ex-smokers quit cold turkey. Trying to cut back gradually doesn't seem to work as well, perhaps because it continues the smoking habit. Also, it is possible to fool yourself by inhaling more while smoking fewer cigarettes. This results in the same amount of nicotine in your body! Get Support: Support programs can make an important difference, especially for the heavy smoker. These groups offer lectures, methods to change your behavior and peer support. Call the free national Quitline for more information. 189-GYAO-PFJ (327-847-7966). Low-cost or free programs are offered by many hospitals, local chapters of the [place] [employer] (427-395-1021) and the [place] [employer] (746-691-3131). Support at home is important too. Non-smokers can help by offering praise and encouragement. If the smoker fails to quit, encourage them to try again! Fhwx-Oaf-Wsazcep Medicines: For those who can't quit on their own, Nicotine Replacement Therapy (NRT) may make quitting much easier. Certain aids such as the nicotine patch, gum and lozenge are available without a prescription. However, it is best to use these under the guidance of your doctor. The skin patch provides a steady supply of nicotine to the body. Nicotine gum and lozenge gives temporary bursts of low levels of nicotine. Both methods take the edge off the craving for cigarettes. WARNING: If you feel symptoms of nicotine overdose, such as nausea, vomiting, dizziness, weakness, or fast heartbeat, stop using these and see your doctor. Prescription Medicines: After evaluating your smoking patterns and prior attempts at quitting, your doctor may offer a prescription medicine such as bupropion (Zyban, Wellbutrin), varenicline (Chantix, Champix), a niocotine inhaler or nasal spray. Each has its unique advantage and side effects which your doctor can review with you. Health Benefits Of Quitting: The benefits of quitting start right away and keep improving the longer you go without smokin minutes: blood pressure and pulse return to normal 8 hours: oxygen levels return to normal 2 days: ability to smell and taste begins to improve as damaged nerves start to regrow 2-3 weeks: circulation and lung function improves 1-9 months: decreased cough, congestion and shortness of breath; less tired 1 year: risk of heart attack decreases by half 5 years: risk of lung cancer decreases by half; risk of stroke becomes the same as a non-smoker For information about how to quit smoking, visit the following links: National [employer] , Clearing the Air, Quit Smoking Today - an online booklet. http://www.smokefree.gov/pubs/clearing_the_air.pdf Smokefree.gov http://smokefree.gov/ QuitNet http://www.quitnet.com/ Levofloxacin Oral tablet What is this medicine? LEVOFLOXACIN (mike elisha DANYELLE chaves) is a quinolone antibiotic. It is used to treat certain kinds of bacterial infections. It will not work for colds, flu, or other viral infections. How should I use this medicine? Take this medicine by mouth with a full glass of water. Follow the directions on the prescription label. This medicine can be taken with or without food. Take your medicine at regular intervals. Do not take your medicine more often than directed. Do not skip doses or stop your medicine early even if you feel better. Do not stop taking except on your doctor's advice. A special MedGuide will be given to you by the pharmacist with each prescription and refill. Be sure to read this information carefully each time. Talk to your manager room regarding the use of this medicine in children. While this drug may be prescribed for children as young as 6 months for selected conditions, precautions do apply. What side effects may I notice from receiving this medicine? Side effects that you should report to your doctor or health healthcare management as soon as possible: -allergic reactions like skin rash or hives, swelling of the face, lips, or tongue -changes in vision -confusion, nightmares or hallucinations -difficulty breathing -irregular heartbeat, chest pain -joint, muscle or tendon pain -pain or difficulty passing urine -persistent headache with or without blurred vision -redness, blistering, peeling or loosening of the skin, including inside the mouth -seizures -unusual pain, numbness, tingling, or weakness -vaginal irritation, discharge Side effects that usually do not require medical attention (report to your doctor or health healthcare management if they continue or are bothersome): -diarrhea -dry mouth -headache -stomach upset, nausea -trouble sleeping What may interact with this medicine? Do not take this medicine with any of the following medications: - arsenic trioxide - chloroquine - droperidol - medicines for irregular heart rhythm like amiodarone, disopyramide, dofetilide, flecainide, quinidine, procainamide, sotalol - some medicines for depression or mental problems like phenothiazines, pimozide, and ziprasidone This medicine may also interact with the following medications: - amoxapine -antacids - cisapride - dairy products - didanosine (ddI) buffered tablets or powder - haloperidol - multivitamins -NSAIDS, medicines for pain and inflammation, like ibuprofen or naproxen - retinoid products like tretinoin or isotretinoin - risperidone - some other antibiotics like clarithromycin or erythromycin - sucralfate - theophylline - warfarin What if I miss a dose? If you miss a dose, take it as soon as you remember. If it is almost time for your next dose, take only that dose. Do not take double or extra doses. Where should I keep my medicine? Keep out of the reach of children. Store at room temperature between 15 and 30 degrees C (59 and 86 degrees F). Keep in a tightly closed container. Throw away any unused medicine after the expiration date. What should I tell my health care provider before I take this medicine? They need to know if you have any of these conditions: cerebral disease irregular heartbeat kidney disease seizure disorder an unusual or allergic reaction to levofloxacin, other antibiotics or medicines, foods, dyes, or preservatives or trying to get breast-feeding What should I watch for while using this medicine? Tell your doctor or health healthcare management if your symptoms do not improve or if they get worse. Drink several glasses of water a day and cut down on drinks that contain caffeine. You must not get dehydrated while taking this medicine. You may get drowsy or dizzy. Do not drive, use machinery, or do anything that needs mental alertness until you know how this medicine affects you. Do not sit or stand up quickly, especially if you are an older patient. This reduces the risk of dizzy or fainting spells. This medicine can make you more sensitive to the sun. Keep out of the sun. If you cannot avoid being in the sun, wear protective clothing and use a sunscreen. Do not use sun lamps or tanning beds/booths. Contact your doctor if you get a sunburn. If you are a diabetic monitor your blood glucose carefully. If you get an unusual reading stop taking this medicine and call your doctor right away. Do not treat diarrhea with [id number] products. Contact your doctor if you have diarrhea that lasts more than 2 days or if the diarrhea is severe and watery. Avoid antacids, calcium, iron, and zinc products for 2 hours before and 2 hours after taking a dose of this medicine. Albuterol Sulfate Pressurized inhalation, suspension What is this medicine? ALBUTEROL (al BYOO ter ole) is a bronchodilator. It helps open up the airways in your lungs to make it easier to breathe. This medicine is used to treat and to prevent bronchospasm. How should I use this medicine? This medicine is for inhalation through the mouth. Follow the directions on your prescription label. Take your medicine at regular intervals. Do not use more often than directed. Make sure that you are using your inhaler correctly. Ask you doctor or health care provider if you have any questions. Talk to your manager room regarding the use of this medicine in children. Special care may be needed. What side effects may I notice from receiving this medicine? Side effects that you should report to your doctor or health healthcare management as soon as possible: allergic reactions like skin rash, itching or hives, swelling of the face, lips, or tongue breathing problems chest pain feeling faint or lightheaded, falls high blood pressure irregular heartbeat fever muscle cramps or weakness pain, tingling, numbness in the hands or feet vomiting Side effects that usually do not require medical attention (report to your doctor or health healthcare management if they continue or are bothersome): cough difficulty sleeping headache nervousness or trembling stomach upset stuffy or runny nose throat irritation unusual taste What may interact with this medicine? anti-infectives like chloroquine and pentamidine caffeine cisapride diuretics medicines for colds medicines for depression or for emotional or psychotic conditions medicines for weight loss including some herbal products methadone some antibiotics like clarithromycin, erythromycin, levofloxacin, and linezolid some heart medicines steroid hormones like dexamethasone, cortisone, hydrocortisone theophylline thyroid hormones What if I miss a dose? If you miss a dose, use it as soon as you can. If it is almost time for your next dose, use only that dose. Do not use double or extra doses. Where should I keep my medicine? Keep out of the reach of children. Store at room temperature between 15 and 30 degrees C (59 and 86 degrees F). The contents are under pressure and may burst when exposed to heat or flame. Do not freeze. This medicine does not work as well if it is too cold. Throw away any unused medicine after the expiration date. Inhalers need to be thrown away after the labeled number of puffs have been used or by the expiration date; whichever comes first. Ventolin HFA should be thrown away 12 months after removing from foil pouch. Check the instructions that come with your medicine. What should I tell my health care provider before I take this medicine? They need to know if you have any of the following conditions: diabetes heart disease or irregular heartbeat high blood pressure pheochromocytoma seizures thyroid disease an unusual or allergic reaction to albuterol, levalbuterol, sulfites, other medicines, foods, dyes, or preservatives or trying to get breast-feeding What should I watch for while using this medicine? Tell your doctor or health healthcare management if your symptoms do not improve. Do not use extra albuterol. If your asthma or bronchitis gets worse while you are using this medicine, call your doctor right away. If your mouth gets dry try chewing sugarless gum or sucking hard candy. Drink water as directed. Prednisone Oral tablet What is this medicine? PREDNISONE (PRED ni sone) is a corticosteroid. It is commonly used to treat inflammation of the skin, joints, lungs, and other organs. Common conditions treated include asthma, allergies, and arthritis. It is also used for other conditions, such as blood disorders and diseases of the adrenal glands. How should I use this medicine? Take this medicine by mouth with a glass of water. Follow the directions on the prescription label. Take this medicine with food. If you are taking this medicine once a day, take it in the morning. Do not take more medicine than you are told to take. Do not suddenly stop taking your medicine because you may develop a severe reaction. Your doctor will tell you how much medicine to take. If your doctor wants you to stop the medicine, the dose may be slowly lowered over time to avoid any side effects. Talk to your manager room regarding the use of this medicine in children. Special care may be needed. What side effects may I notice from receiving this medicine? Side effects that you should report to your doctor or health healthcare management as soon as possible: allergic reactions like skin rash, itching or hives, swelling of the face, lips, or tongue changes in emotions or moods changes in vision depressed mood eye pain fever or chills, cough, sore throat, pain or difficulty passing urine increased thirst swelling of ankles, feet Side effects that usually do not require medical attention (report to your doctor or health healthcare management if they continue or are bothersome): confusion, excitement, restlessness headache nausea, vomiting skin problems, acne, thin and shiny skin trouble sleeping weight gain What may interact with this medicine? Do not take this medicine with any of the following medications: metyrapone mifepristone This medicine may also interact with the following medications: aminoglutethimide amphotericin B aspirin and aspirin-like medicines barbiturates certain medicines for diabetes, like glipizide or glyburide cholestyramine cholinesterase inhibitors cyclosporine digoxin diuretics ephedrine female hormones, like estrogens and control pills isoniazid ketoconazole NSAIDS, medicines for pain and inflammation, like ibuprofen or naproxen phenytoin rifampin toxoids vaccines warfarin What if I miss a dose? If you miss a dose, take it as soon as you can. If it is almost time for your next dose, talk to your doctor or health healthcare management. You may need to miss a dose or take an extra dose. Do not take double or extra doses without advice. Where should I keep my medicine? Keep out of the reach of children. Store at room temperature between 15 and 30 degrees C (59 and 86 degrees F). Protect from light. Keep container tightly closed. Throw away any unused medicine after the expiration date. What should I tell my health care provider before I take this medicine? They need to know if you have any of these conditions: Lm's syndrome diabetes glaucoma heart disease high blood pressure infection (especially a virus infection such as chickenpox, cold sores, or herpes) kidney disease liver disease mental illness myasthenia gravis osteoporosis seizures stomach or intestine problems thyroid disease an unusual or allergic reaction to lactose, prednisone, other medicines, foods, dyes, or preservatives or trying to get breast-feeding What should I watch for while using this medicine? Visit your doctor or health healthcare management for regular checks on your progress. If you are taking this medicine over a prolonged period, carry an identification card with your name and address, the type and dose of your medicine, and your doctor's name and address. This medicine may increase your risk of getting an infection. Tell your doctor or health healthcare management if you are around anyone with measles or chickenpox, or if you develop sores or blisters that do not heal properly. If you are going to have surgery, tell your doctor or health healthcare management that you have taken this medicine within the last twelve months. Ask your doctor or health healthcare management about your diet. You may need to lower the amount of salt you eat. This medicine may affect blood sugar levels. If you have diabetes, check with your doctor or health healthcare management before you change your diet or the dose of your diabetic medicine. You have been given the following additional information: COPD Flare Pneumonia (Adult) Smoking Cessation Levofloxacin Oral tablet Albuterol Sulfate Pressurized inhalation, suspension Prednisone Oral tablet (Electronically signed by Jerry Kinney Dr. 02/17/2017 21:41)
== END 2017-02-17 11:21 | disposition home or self-care (01) ==
LOC: ED SRH 10:01
DX: J15.9 Unspecified bacterial pneumonia (principal); J44.0 Chronic obstructive pulmonary disease with (acute) lower respiratory infection; J44.1 Chronic obstructive pulmonary disease with (acute) exacerbation; I10 Essential (primary) hypertension; F17.210 Nicotine dependence, cigarettes, uncomplicated; F19.10 Other psychoactive substance abuse, uncomplicated

== ENCOUNTER 2017-05-07 13:48 | Emergency (ER) | payer OTHER ==
--- NOTE | 2017-05-07 15:51 | ED CLINICAL REPORT ---
Clinical Report - Physicians/Mid Levels [facility] [address] [place] [address] 05/07/2017 13:48 Patient: CARLA NEAL Time Seen: 15:05; initial patient contact, initial documentation, patient care assumed. Arrived- By private vehicle. Historian- patient. HISTORY OF PRESENT ILLNESS Chief Complaint: LESION and TENDER AREA. This started about 1 weeks ago and is still present and worsening. Not itchy or burning. It is described as painful. It has been located on the right arm (struck upper arm on barbwire). A possible cause has been identified. Similar symptoms previously: Once, worse. ( had abscess in same location approx x1 year ago, admitted to hospital, and went to OR for it). Recent medical care: Not recently seen/assessed. REVIEW OF SYSTEMS No fever or difficulty breathing. All systems otherwise negative, except as recorded above. PAST HISTORY See nurses notes. PROBLEMS: COPD - Chronic Obstructive Pulmonary Disease. Pneumonia. Lifestyle / Substance Problems. Cellulitis. Substance Abuse. Hypertension. --14:43 Niecy Cervantes R.N. SOCIAL HISTORY Light tobacco smoker. 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 Is a recovering addict. No alcohol use. No recent travel. Is a local resident. FAMILY HISTORY Negative. ADDITIONAL NOTES The nursing notes have been reviewed with agreement regarding the chief complaint, HPI, ROS, PMH and patient medications and allergies. PHYSICAL EXAM Vital Signs: 05/07/2017 14:51 BP: 131/86. HR: 93. RR: 16. O2 saturation: 95%. Temp: 99.2 F. Pain level now: 7/10. Have been reviewed as normal and appear to be correct. Appearance: Alert. Oriented X3. No acute distress. Eyes: Pupils equal, round and reactive to light. Conjunctivae and eyelids normal. Neck: Neck supple. Respiratory: No respiratory distress. Skin: Skin warm and dry. Normal skin color. No rash. Normal skin turgor. Single large abscess with fluctuance, pointing and cellulitis to right arm. No drainage. Extremities: Normal external inspection. Extremities nontender. Neuro: Oriented X 3. No motor deficit. No sensory deficit. PROGRESS AND PROCEDURES Incision & Drainage of Abscess: The abscess is located in the right arm (R deltoid area). The risks of the procedure, benefits and alternatives were explained. Consent was obtained. Local anesthesia provided using 1% lidocaine. Skin cleansed with Betadine. The abscess was incised with a #11 surgical blade. A large amount of pus was drained. Cavity was irrigated with saline and packed with gauze. Sample obtained for cultures. Estimated blood loss: 30 mL. ( wound probed to break up inoculates, packed with 1/2 inch iodoform packing, used entire 15foot bottle, pt tolerated procedure well without issues). Course of Care: concerns voiced to pt during I&D that abscess may have went as far as the muscle, and that there may be muscle damage and area may need I&D in OR. Patient counseled in person regarding the patient's stable condition and diagnosis. Differential Diagnosis: Other possible considerations: substance abuse, infected abrasion, abscess, mrsa, cellulitis, insect bite/sting, dermatitis. Above considerations are based on history and physical exam. Differential diagnosis was discussed with patient. Disposition: Discharged home in good and improved condition (15:51). Condition: good and stable. CLINICAL IMPRESSION Single deep abscess to the right upper extremity with incision and drainage. INSTRUCTIONS Warnings: GENERAL WARNINGS: Return or contact your physician immediately if your condition worsens or changes unexpectedly, if not improving as expected, or if other problems arise. Specifically return if problem worsens. Prescription Medications: Bactrim DS 800 mg / 160 mg: take 1 tablet orally every 12 hours for 10 days. No refill. Clindamycin 150 mg: take 1 capsule orally every 6 hours for 10 days. No refill. Aztec 5 mg / 325 mg tablets: take 1 orally every 6 hours as needed for pain. Dispense five (5). No refill. Motrin 800 mg tablets: take 1 tablet orally every 8 hours as needed for pain. Dispense thirty (30). No refills. Substitution is permissible. Follow-up: Follow up with your doctor in two days even if well and for wound check and packing removal. Call for an appointment. Reason for referral: abscess may need to be repacked. Summary of care provided to patient. Understanding of the discharge instructions verbalized by patient. (Electronically signed by Charo Purcell A.R.N.P. 05/07/2017 20:45)
--- NOTE | 2017-05-07 15:51 | ED NURSING NOTES ---
Clinical Report - Nurses [facility] [place] [address] 05/07/2017 13:48 Patient: CARLA NEAL TRIAGE Triage time 14:39. Acuity: LEVEL 3. Chief Complaint: RIGHT UPPER EXTREMITY PAIN, SWELLING and REDNESS. SEPSIS SCREEN: Sepsis Screen. Negative (no infection suspected/documented). --14:47 Niecy Cervantes R.N. 14:51 05/07/17. BP: 131/86. HR: 93. RR: 16. O2 saturation: 95%. Temp: 99.2 F. Pain level now: 05/17. --14:52 Niecy Cervantes R.N. Weight: 98.4 kg stated. Height/Length: 72 inches Per Patient. BMI: 29.4. --14:46 Niecy Cervantes R.N. Medications Methadone HCl Oral 108mg, daily. --14:42 Niecy Cervantes R.N. The following entry was struck and corrected by Niecy Cervantes R.N., 14:42 (05/07/17) Reason for correction - other(correction). <<STRICKEN ENTRY-- Methadone HCl Oral 112mg, daily. --14:42 Niecy Cervantes R.N. --END STRIKE>>. Allergies No Known Drug Allergy. --14:42 Niecy Cervantes R.N. History Arrived by private vehicle. Historian: patient. Accompanied by family. Primary physician (no pcp). ( Pt has abscess on right shoulder from barbwire fence scratch. Has had abscess in same place from heroin in the past but he has been clean for 1 year.). This occurred (about 1 weeks ago). 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 PAST MEDICAL HX: Hypertension. Infections. Tetanus status: up-to-date. Immunizations: up-to-date. SURGERY HX: Back surgery. ( I&D of abscess). SOCIAL HX: Current every day light tobacco smoker (cigarette)- less than 1/2 a pack per day. History of drug use. Is a recovering addict. No alcohol use. SELF HARM ASSESSMENT: A self harm assessment was performed. The patient answered "no" to the question "Do you have thoughts of harming or killing yourself?". Bedside precautions. FALL RISK ASSESSMENT: Fall risk assessment completed. No fall risk identified. NUTRITIONAL RISK ASSESSMENT: The nutritional risk assessment revealed no deficiencies. FUNCTIONAL ASSESSMENT: Functional assessment: no impairments noted. LEARNING NEEDS ASSESSMENT: The learning needs assessment revealed no barriers. ABUSE ASSESSMENT: Abuse assessment: ("Yes") The patient was asked "Do you feel safe in your home?". SKIN INTEGRITY ASSESSMENT: Skin integrity risk assessment completed. No skin integrity risk identified. --14:47 Niecy Cervantes R.N. PROBLEMS: COPD - Chronic Obstructive Pulmonary Disease. Pneumonia. Lifestyle / Substance Problems. Cellulitis. Substance Abuse. Hypertension. --14:43 Niecy Cervantes R.N. Interventions ID band on patient. To room. --14:47 Niecy Cervantes R.N. PHYSICAL ASSESSMENT Ambulatory to room. GENERAL / NEURO / PSYCH: Oriented X 4. Alert. Appears in no acute distress. EXTREMITIES: Right shoulder: tenderness, swelling and erythema. SKIN: New crusted and tender wound present on the right arm. Skin is warm and dry. --14:48 Niecy Cervantes R.N. NURSING PROGRESS NOTES Reassurance given. Patient identifiers checked. Call light placed in reach. Side rails up. Bed placed in lowest position. Brakes of bed on. Patient ready for evaluation- chart flagged and ED physician and PA notified. --14:49 Niecy Cervantes R.N. 15:56 05/07/2017 Lidocaine Injection Injectable 2 % given. (given by tiny larkin). --16:21 Niecy Cervantes R.N. 16:21 05/07/2017 Ancef (CeFAZolin Sodium) IM 1 gm given. Given in the right gluteus chana. Allergies verified and confirmed 5 rights. --16:21 Niecy Cervantes R.N. 16:21 05/07/2017 Clindamycin IM 600 mg given. Given in the left gluteus chana. Allergies verified and confirmed 5 rights. --16:21 Niecy Cervantes R.N. Applied bulky dressing consisting of 4x4 gauze. Secured with tape and sameer. --16:25 Niecy Cervantes R.N. DISPOSITION / DISCHARGE Condition at departure: improved. No learning barriers present. Discharge instructions provided and reviewed with the patient and spouse. Reviewed medication(s) side effects, precautions, dosing and course information. Prescription(s) given to the patient. Patient and spouse verbalized understanding. Written instructions provided in Urdu. The patient was discharged by the physician high school assistant principal. He was discharged home and accompanied by spouse. He left the Emergency Department ambulatory and via private vehicle. Patient driving. --16:32 Niecy Cervantes R.N. 16:31 05/07/17. BP: 128/78. HR: 88. RR: 16. O2 saturation: 98%. Temp: 99 F. Pain level now: 03/17. --16:32 Niecy Cervantes R.N. Departure time: 16:32. --16:32 Niecy Cervantes R.N. Locked/Released at 05/07/2017 17:58 by Niecy Cervantes R.N.
--- NOTE | 2017-05-07 15:51 | ED ORDER SUMMARY ---
..... Patient: CARLA NEAL OrderSheet [facility] VisitID: [id number] [place] [address] 41y, M Registration Date/Time: 05/07/2017 ORDER SHEET Weight: 98.4 kg (stated) Allergies: No Known Drug Allergy GENERAL ORDERS: Culture, Wound Deep (Arm) (Rupper arm) Urgent (15:13 05/07/2017 HBivens A.R.N.P.) (Ack 15:18 PWeiler ER Tech1) (15:55 PWeiler ER Tech1) (15:57 JBest R.N.) I&D Tray (15:13 05/07/2017 HBivens A.R.N.P.) (Ack 15:39 PWeiler ER Tech1) (15:40 PWeiler ER Tech1) Dress Wounds (15:13 05/07/2017 HBivens A.R.N.P.) (Ack 15:39 PWeiler ER Tech1) (15:40 PWeiler ER Tech1) - (please analia area of erythema with skin pen on counter) (15:43 05/07/2017 HBivens A.R.N.P.) (16:06 JBest R.N.) MEDICATION ORDERS: Lidocaine Injection 1% plain (NOW) (15:13 05/07/2017 HBivens A.R.N.P.) (16:21 JBest R.N.) Valium IM 10 mg (HIGH ALERT MEDICATION, NOW) (15:14 05/07/2017 HBivens A.R.N.P.) (Cancelled: Other15:43 HBivens A.R.N.P.) Ancef IM 1 gm (NOW) (15:43 05/07/2017 HBivens A.R.N.P.) (16:21 JBest R.N.) Clindamycin IM 600 mg (NOW) (15:43 05/07/2017 HBivens A.R.N.P.) (16:21 JBest R.N.) IV FLUIDS: ORDER SHEET NOTES: [Electronically signed by Niecy Cervantes R.N. (17:58 05/07/2017)] [Electronically signed by Charo Purcell (20:45 05/07/2017)] [Electronically locked/signed by Niecy Cervantes R.N. (17:58 05/07/2017)]
--- NOTE | 2017-05-07 15:51 | ED NURSING NOTES ---
Clinical Report - Nurses [facility] [place] [address] 05/07/2017 13:48 Patient: CARLA NEAL TRIAGE Triage time 14:39. Acuity: LEVEL 3. Chief Complaint: RIGHT UPPER EXTREMITY PAIN, SWELLING and REDNESS. SEPSIS SCREEN: Sepsis Screen. Negative (no infection suspected/documented). --14:47 Niecy Cervantes R.N. 14:51 05/07/17. BP: 131/86. HR: 93. RR: 16. O2 saturation: 95%. Temp: 99.2 F. Pain level now: 05/17. --14:52 Niecy Cervantes R.N. Weight: 98.4 kg stated. Height/Length: 72 inches Per Patient. BMI: 29.4. --14:46 Niecy Cervantes R.N. Medications Methadone HCl Oral 108mg, daily. --14:42 Niecy Cervantes R.N. The following entry was struck and corrected by Niecy Cervantes R.N., 14:42 (05/07/17) Reason for correction - other(correction). <<STRICKEN ENTRY-- Methadone HCl Oral 112mg, daily. --14:42 Niecy Cervantes R.N. --END STRIKE>>. Allergies No Known Drug Allergy. --14:42 Niecy Cervantes R.N. History Arrived by private vehicle. Historian: patient. Accompanied by family. Primary physician (no pcp). ( Pt has abscess on right shoulder from barbwire fence scratch. Has had abscess in same place from heroin in the past but he has been clean for 1 year.). This occurred (about 1 weeks ago). 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 PAST MEDICAL HX: Hypertension. Infections. Tetanus status: up-to-date. Immunizations: up-to-date. SURGERY HX: Back surgery. ( I&D of abscess). SOCIAL HX: Current every day light tobacco smoker (cigarette)- less than 1/2 a pack per day. History of drug use. Is a recovering addict. No alcohol use. SELF HARM ASSESSMENT: A self harm assessment was performed. The patient answered "no" to the question "Do you have thoughts of harming or killing yourself?". Bedside precautions. FALL RISK ASSESSMENT: Fall risk assessment completed. No fall risk identified. NUTRITIONAL RISK ASSESSMENT: The nutritional risk assessment revealed no deficiencies. FUNCTIONAL ASSESSMENT: Functional assessment: no impairments noted. LEARNING NEEDS ASSESSMENT: The learning needs assessment revealed no barriers. ABUSE ASSESSMENT: Abuse assessment: ("Yes") The patient was asked "Do you feel safe in your home?". SKIN INTEGRITY ASSESSMENT: Skin integrity risk assessment completed. No skin integrity risk identified. --14:47 Niecy Cervantes R.N. PROBLEMS: COPD - Chronic Obstructive Pulmonary Disease. Pneumonia. Lifestyle / Substance Problems. Cellulitis. Substance Abuse. Hypertension. --14:43 Niecy Cervantes R.N. Interventions ID band on patient. To room. --14:47 Niecy Cervantes R.N. PHYSICAL ASSESSMENT Ambulatory to room. GENERAL / NEURO / PSYCH: Oriented X 4. Alert. Appears in no acute distress. EXTREMITIES: Right shoulder: tenderness, swelling and erythema. SKIN: New crusted and tender wound present on the right arm. Skin is warm and dry. --14:48 Niecy Cervantes R.N. NURSING PROGRESS NOTES Reassurance given. Patient identifiers checked. Call light placed in reach. Side rails up. Bed placed in lowest position. Brakes of bed on. Patient ready for evaluation- chart flagged and ED physician and PA notified. --14:49 Niecy Cervantes R.N. 15:56 05/07/2017 Lidocaine Injection Injectable 2 % given. (given by tiny larkin). --16:21 Niecy Cervantes R.N. 16:21 05/07/2017 Ancef (CeFAZolin Sodium) IM 1 gm given. Given in the right gluteus chana. Allergies verified and confirmed 5 rights. --16:21 Niecy Cervantes R.N. 16:21 05/07/2017 Clindamycin IM 600 mg given. Given in the left gluteus chana. Allergies verified and confirmed 5 rights. --16:21 Niecy Cervantes R.N. Applied bulky dressing consisting of 4x4 gauze. Secured with tape and sameer. --16:25 Niecy Cervantes R.N. DISPOSITION / DISCHARGE Condition at departure: improved. No learning barriers present. Discharge instructions provided and reviewed with the patient and spouse. Reviewed medication(s) side effects, precautions, dosing and course information. Prescription(s) given to the patient. Patient and spouse verbalized understanding. Written instructions provided in Belarusian. The patient was discharged by the physician administrative assistant front desk. He was discharged home and accompanied by spouse. He left the Emergency Department ambulatory and via private vehicle. Patient driving. --16:32 Niecy Cervantes R.N. 16:31 05/07/17. BP: 128/78. HR: 88. RR: 16. O2 saturation: 98%. Temp: 99 F. Pain level now: 03/17. --16:32 Niecy Cervantes R.N. Departure time: 16:32. --16:32 Niecy Cervantes R.N. Locked/Released at 05/07/2017 17:58 by Niecy Cervantes R.N.
--- NOTE | 2017-05-07 15:51 | ED ORDER SUMMARY ---
..... Patient: CARLA NEAL OrderSheet [facility] VisitID: [id number] [place] [address] 41y, M Registration Date/Time: 05/07/2017 ORDER SHEET Weight: 98.4 kg (stated) Allergies: No Known Drug Allergy GENERAL ORDERS: Culture, Wound Deep (Arm) (Rupper arm) Urgent (15:13 05/07/2017 HBivens A.R.N.P.) (Ack 15:18 PWeiler ER Tech1) (15:55 PWeiler ER Tech1) (15:57 JBest R.N.) I&D Tray (15:13 05/07/2017 HBivens A.R.N.P.) (Ack 15:39 PWeiler ER Tech1) (15:40 PWeiler ER Tech1) Dress Wounds (15:13 05/07/2017 HBivens A.R.N.P.) (Ack 15:39 PWeiler ER Tech1) (15:40 PWeiler ER Tech1) - (please analia area of erythema with skin pen on counter) (15:43 05/07/2017 HBivens A.R.N.P.) (16:06 JBest R.N.) MEDICATION ORDERS: Lidocaine Injection 1% plain (NOW) (15:13 05/07/2017 HBivens A.R.N.P.) (16:21 JBest R.N.) Valium IM 10 mg (HIGH ALERT MEDICATION, NOW) (15:14 05/07/2017 HBivens A.R.N.P.) (Cancelled: Other15:43 HBivens A.R.N.P.) Ancef IM 1 gm (NOW) (15:43 05/07/2017 HBivens A.R.N.P.) (16:21 JBest R.N.) Clindamycin IM 600 mg (NOW) (15:43 05/07/2017 HBivens A.R.N.P.) (16:21 JBest R.N.) IV FLUIDS: ORDER SHEET NOTES: [Electronically signed by Niecy Cervantes R.N. (17:58 05/07/2017)] [Electronically signed by Charo Purcell (20:45 05/07/2017)] [Electronically locked/signed by Niecy Cervantes R.N. (17:58 05/07/2017)]
--- NOTE | 2017-05-07 20:45 | ED DISCHARGE INSTRUCTIONS ---
Patient: CARLA NEAL General Instructions [facility] VisitID: [id number] [place] [address] 41y, M Registration Date/Time: 05/07/2017 Single deep abscess to the right upper extremity with incision and drainage. INSTRUCTIONS Warnings: GENERAL WARNINGS: Return or contact your physician immediately if your condition worsens or changes unexpectedly, if not improving as expected, or if other problems arise. Specifically return if problem worsens. Prescription Medications: Bactrim DS 800 mg / 160 mg: take 1 tablet orally every 12 hours for 10 days. No refill. Clindamycin 150 mg: take 1 capsule orally every 6 hours for 10 days. No refill. [place] 5 mg / 325 mg tablets: take 1 orally every 6 hours as needed for pain. Dispense five (5). No refill. Motrin 800 mg tablets: take 1 tablet orally every 8 hours as needed for pain. Dispense thirty (30). No refills. Substitution is permissible. Follow-up: Follow up with your doctor in two days even if well and for wound check and packing removal. Call for an appointment. Reason for referral: abscess may need to be repacked. Summary of care provided to patient. Understanding of the discharge instructions verbalized by patient. ADDITIONAL INFORMATION Abscess [Incision & Drainage] An abscess (sometimes called a boil) occurs when bacteria get trapped under the skin and begin to grow. Pus forms inside the abscess as the body responds to the bacteria. An abscess can occur with an insect bite, ingrown hair, blocked oil gland, pimple, cyst, or puncture wound. Treatment of your abscess has required an incision to drain the pus. If the abscess pocket was large, a gauze packing may have been inserted. This will need to be removed and possibly replaced on your next visit. Antibiotics are not required in the treatment of a simple abscess, unless the infection is spreading into the skin around the wound (known as cellulitis). Healing of the wound will take about one to two weeks depending on the size of the abscess. Healthy tissue will grow from the bottom and sides of the opening until it seals over. Home Care: The wound may drain for the first two days. Cover the wound with a clean dry dressing. If the dressing becomes soaked with blood or pus, change it. If a gauze packing was placed inside the abscess cavity, you may be advised to remove it yourself. You may do this in the shower. Once the packing is removed, you should wash the area in the shower or bath 3 to 4 times a day, until the skin opening has closed. If you were prescribed antibiotics, take them as directed until they are all gone. You may use acetaminophen (Tylenol) or ibuprofen (Motrin, Advil) to control pain, unless another pain medicine was prescribed. [ NOTE: If you have liver disease or ever had a stomach ulcer, talk with your doctor before using these medicines.] Follow Up with your doctor as advised by our staff. If a gauze packing was inserted in your wound, it should be removed in 1-2 days. Check your wound every day for the signs of worsening infection listed below. Get Prompt Medical Attention if any of the following occur: Increasing redness or swelling Red streaks in the skin leading away from the wound Increasing local pain or swelling Continued pus draining from the wound two days after treatment Fever of 100.4F (38C) or higher, or as directed by your healthcare provider Cellulitis You have an infection of the skin known as cellulitis. This usually starts with a scrape, cut, insect bite, blister or other opening in the skin which becomes infected. This is a serious condition. It must be watched closely to be sure the infection is not spreading. With antibiotic treatment, the size of the red area will gradually shrink in size until the skin returns to normal. This will take 7-10 days. The red area should never increase in size once the antibiotic medicine has been started. Occasionally, an infection will be resistant to one antibiotic and another one will have to be used. Home Care: 1) Limit the use of the affected part, since excess movement can cause the infection to spread. 2) If the infection is on your leg, walk as little as possible during the first few days of the treatment. Keep your leg elevated while sitting. This will reduce swelling. 3) Take all of the antibiotic medicine exactly as directed until it is gone. Be careful not to miss any doses, especially during the first seven days. Follow Up with your doctor or this facility as directed. Check the infected area daily for the warning signs listed below. Get Prompt Medical Attention if any of the following occur: -- Spreading area of redness -- Increasing swelling or pain -- Appearance of pus or drainage -- Fever over 100.4 F (38.0 C) oral, or over 101.4 F (38.6 C) rectal, after two days on antibiotics Staph Infection (MRSA) "Staph" is the short name for the common bacteria called "staphylococcus aureus". Staph bacteria are often present on the skin without causing an infection. If it gets under the skin an infection occurs. This causes redness, tenderness, swelling and sometimes fluid drainage. MRSA stands for "Methicillin-Resistant Staph Aureus". Unlike a common staph infection, MRSA bacteria are resistant to the usual antibiotics and harder to treat. Also, MRSA is more toxic than common staph bacteria. It can spread quickly throughout the body and cause a life-threatening illness. MRSA is spread to others by direct physical contact with the bacteria. MRSA can also be transmitted from items contaminated by a person who has the bacteria, such as bandages, towels, bed sheets, or sports equipment. It is not spread through the air. Once you have a MRSA skin infection, you are at risk of having it recur in the future. If MRSA infection is suspected, the doctor may take a wound culture to confirm the diagnosis. Any abscess will be drained. One or sometimes two antibiotics that work against MRSA will be prescribed. Home Care: 1) Take any antibiotics prescribed exactly as directed until they are gone. 2) Follow the same washing procedures as outlined for Household Members below. 3) Keep draining wounds covered with clean, dry bandages. Change dressings as they become soiled. 4) You and those in contact with you should wash their hands frequently with soap and warm water or use an alcohol-based hand forensic anthropologist. Do this after each time you change the bandage or touch the wound. 5) Avoid sharing personal items such as towels, washcloths, razors, clothing, or uniforms. Wash soiled sheets, towels or clothes in hot water with laundry detergent. Use an automatic clothes dryer set on high to kill any remaining bacteria. 6) Remove any artificial nails and nail somali. 7) If you use a gym, wipe down equipment before and after each use. Treatment Of Household Members If you have been diagnosed with possible MRSA infection, those living with you are at higher risk of carrying the bacteria on their skin or in their nose, even if there is no sign of infection. Bacteria must be removed from the skin of all household members (including you) at the same time, so that it is not passed back and forth. Advise them to remove the bacteria as follows: Wash your whole body (scalp to toes) daily for five days with Hibiclens (chlorhexidine). Scrub fingernails with a brush for one minute twice a day. If any skin infections are present (boils, abscess, infected cut) these must be treated by a doctor. Washing alone will not treat a MRSA infection. Clean counter tops and children's toys; do not share personal items such as toothbrush and razors. It is okay to share glasses, plates, utensils. If antibiotic ointment was prescribed use it as directed. Follow Up with your doctor or as advised by our staff. If a wound culture was taken, call as directed in two days to obtain the results. If the culture result is positive for MRSA, tell medical personnel in the future that you were treated for this type of infection. Get Prompt Medical Attention if any of the following occur: -- Increasing redness, swelling or pain -- Red streaks in the skin around the wound -- Weakness or dizziness -- New appearance of pus or drainage from the wound -- New fever over 100.4 F (38.0 C) Sulfamethoxazole, Trimethoprim Oral tablet What is this medicine? SULFAMETHOXAZOLE; TRIMETHOPRIM or SMX-TMP (suhl fuh meth OK meri zohl; trye METH oh prim) is a combination of a sulfonamide antibiotic and a second antibiotic, trimethoprim. It is used to treat or prevent certain kinds of bacterial infections. It will not work for colds, flu, or other viral infections. How should I use this medicine? Take this medicine by mouth with a full glass of water. Follow the directions on the prescription label. Take your medicine at regular intervals. Do not take it more often than directed. Do not skip doses or stop your medicine early. Talk to your telephone betting clerk regarding the use of this medicine in children. Special care may be needed. This medicine has been used in children as young as 2 months of age. What side effects may I notice from receiving this medicine? Side effects that you should report to your doctor or health healthcare administrator as soon as possible: allergic reactions like skin rash or hives, swelling of the face, lips, or tongue breathing problems fever or chills, sore throat irregular heartbeat, chest pain joint or muscle pain pain or difficulty passing urine red pinpoint spots on skin redness, blistering, peeling or loosening of the skin, including inside the mouth unusual bleeding or bruising unusually weak or tired yellowing of the eyes or skin Side effects that usually do not require medical attention (report to your doctor or health healthcare administrator if they continue or are bothersome): diarrhea dizziness headache loss of appetite nausea, vomiting nervousness What may interact with this medicine? Do not take this medicine with any of the following medications: aminobenzoate potassium dofetilide metronidazole This medicine may also interact with the following medications: THERESA inhibitors like benazepril, enalapril, lisinopril, and ramipril cyclosporine digoxin diuretics indomethacin medicines for diabetes methenamine methotrexate phenytoin potassium supplements pyrimethamine sulfinpyrazone tricyclic antidepressants warfarin What if I miss a dose? If you miss a dose, take it as soon as you can. If it is almost time for your next dose, take only that dose. Do not take double or extra doses. Where should I keep my medicine? Keep out of the reach of children. Store at room temperature between 20 to 25 degrees C (68 to 77 degrees F). Protect from light. Throw away any unused medicine after the expiration date. What should I tell my health care provider before I take this medicine? They need to know if you have any of these conditions: anemia asthma being treated with anticonvulsants if you frequently drink alcohol containing drinks kidney disease liver disease low level of folic acid or [id number] dehydrogenase poor nutrition or malabsorption porphyria severe allergies thyroid disorder an unusual or allergic reaction to sulfamethoxazole, trimethoprim, sulfa drugs, other medicines, foods, dyes, or preservatives or trying to get breast-feeding What should I watch for while using this medicine? Tell your doctor or health healthcare administrator if your symptoms do not improve. Drink several glasses of water a day to reduce the risk of kidney problems. Do not treat diarrhea with over the counter products. Contact your doctor if you have diarrhea that lasts more than 2 days or if it is severe and watery. This medicine can make you more sensitive to the sun. Keep out of the sun. If you cannot avoid being in the sun, wear protective clothing and use a sunscreen. Do not use sun lamps or tanning beds/booths. Clindamycin Hydrochloride Oral capsule What is this medicine? CLINDAMYCIN (RAJESH Quintero) is a lincosamide antibiotic. It is used to treat certain kinds of bacterial infections. It will not work for colds, flu, or other viral infections. How should I use this medicine? Take this medicine by mouth with a full glass of water. Follow the directions on the prescription label. You can take this medicine with food or on an empty stomach. If the medicine upsets your stomach, take it with food. Take your medicine at regular intervals. Do not take your medicine more often than directed. Take all of your medicine as directed even if you think your are better. Do not skip doses or stop your medicine early. Talk to your telephone betting clerk regarding the use of this medicine in children. Special care may be needed. What side effects may I notice from receiving this medicine? Side effects that you should report to your doctor or health healthcare administrator as soon as possible: allergic reactions like skin rash, itching or hives, swelling of the face, lips, or tongue dark urine pain on swallowing redness, blistering, peeling or loosening of the skin, including inside the mouth unusual bleeding or bruising unusually weak or tired yellowing of eyes or skin Side effects that usually do not require medical attention (report to your doctor or health healthcare administrator if they continue or are bothersome): diarrhea itching in the rectal or genital area joint pain nausea, vomiting stomach pain What may interact with this medicine? chloramphenicol erythromycin kaolin products What if I miss a dose? If you miss a dose, take it as soon as you can. If it is almost time for your next dose, take only that dose. Do not take double or extra doses. Where should I keep my medicine? Keep out of the reach of children. Store at room temperature between 20 and 25 degrees C (68 and 77 degrees F). Throw away any unused medicine after the expiration date. What should I tell my health care provider before I take this medicine? They need to know if you have any of these conditions: kidney disease liver disease stomach problems like colitis an unusual or allergic reaction to clindamycin, lincomycin, or other medicines, foods, dyes like tartrazine or preservatives or trying to get breast-feeding What should I watch for while using this medicine? Tell your doctor or healthcare professional if your symptoms do not start to get better or if they get worse. Do not treat diarrhea with over the counter products. Contact your doctor if you have diarrhea that lasts more than 2 days or if it is severe and watery. Hydrocodone Bitartrate, Acetaminophen Oral tablet What is this medicine? ACETAMINOPHEN; HYDROCODONE (a set a MARYLOU rojas fen; ean droe KOE done) is a pain reliever. It is used to treat mild to moderate pain. How should I use this medicine? Take this medicine by mouth. Swallow it with a full glass of water. Follow the directions on the prescription label. If the medicine upsets your stomach, take the medicine with food or milk. Do not take more than you are told to take. Talk to your telephone betting clerk regarding the use of this medicine in children. This medicine is not approved for use in children. What side effects may I notice from receiving this medicine? Side effects that you should report to your doctor or health healthcare administrator as soon as possible: allergic reactions like skin rash, itching or hives, swelling of the face, lips, or tongue breathing problems confusion feeling faint or lightheaded, falls stomach pain yellowing of the eyes or skin Side effects that usually do not require medical attention (report to your doctor or health healthcare administrator if they continue or are bothersome): nausea, vomiting stomach upset What may interact with this medicine? alcohol antihistamines isoniazid medicines for depression, anxiety, or psychotic disturbances medicines for sleep muscle relaxants naltrexone narcotic medicines (opiates) for pain phenobarbital ritonavir tramadol What if I miss a dose? If you miss a dose, take it as soon as you can. If it is almost time for your next dose, take only that dose. Do not take double or extra doses. Where should I keep my medicine? Keep out of the reach of children. This medicine can be abused. Keep your medicine in a safe place to protect it from theft. Do not share this medicine with anyone. Selling or giving away this medicine is dangerous and against the law. Store at room temperature between 15 and 30 degrees C (59 and 86 degrees F). Protect from light. Keep container tightly closed. Throw away any unused medicine after the expiration date. Discard unused medicine and used packaging carefully. Pets and children can be harmed if they find used or lost packages. What should I tell my health care provider before I take this medicine? They need to know if you have any of these conditions: brain tumor Crohn's disease, inflammatory bowel disease, or ulcerative colitis drink more than 3 alcohol-containing drinks per day drug abuse or addiction head injury heart or circulation problems kidney disease or problems going to the bathroom liver disease lung disease, asthma, or breathing problems an unusual or allergic reaction to acetaminophen, hydrocodone, other opioid analgesics, other medicines, foods, dyes, or preservatives or trying to get breast-feeding What should I watch for while using this medicine? Tell your doctor or health healthcare administrator if your pain does not go away, if it gets worse, or if you have new or a different type of pain. You may develop tolerance to the medicine. Tolerance means that you will need a higher dose of the medicine for pain relief. Tolerance is normal and is expected if you take the medicine for a long time. Do not suddenly stop taking your medicine because you may develop a severe reaction. Your body becomes used to the medicine. This does NOT mean you are addicted. Addiction is a behavior related to getting and using a drug for a non-medical reason. If you have pain, you have a medical reason to take pain medicine. Your doctor will tell you how much medicine to take. If your doctor wants you to stop the medicine, the dose will be slowly lowered over time to avoid any side effects. You may get drowsy or dizzy when you first start taking the medicine or change doses. Do not drive, use machinery, or do anything that may be dangerous until you know how the medicine affects you. Stand or sit up slowly. There are different types of narcotic medicines (opiates) for pain. If you take more than one type at the same time, you may have more side effects. Give your health care provider a list of all medicines you use. Your doctor will tell you how much medicine to take. Do not take more medicine than directed. Call emergency for help if you have problems breathing. The medicine will cause constipation. Try to have a bowel movement at least every 2 to 3 days. If you do not have a bowel movement for 3 days, call your doctor or health healthcare administrator. Too much acetaminophen can be very dangerous. Do not take Tylenol (acetaminophen) or medicines that contain acetaminophen with this medicine. Many non-prescription medicines contain acetaminophen. Always read the labels carefully. Ibuprofen Oral tablet What is this medicine? IBUPROFEN (eye BYOO proe fen) is a non-steroidal anti-inflammatory drug (NSAID). It is used for dental pain, fever, headaches or migraines, osteoarthritis, rheumatoid arthritis, or painful monthly periods. It can also relieve minor aches and pains caused by a cold, flu, or sore throat. How should I use this medicine? Take this medicine by mouth with a glass of water. Follow the directions on the prescription label. Take this medicine with food if your stomach gets upset. Try to not lie down for at least 10 minutes after you take the medicine. Take your medicine at regular intervals. Do not take your medicine more often than directed. A special MedGuide will be given to you by the pharmacist with each prescription and refill. Be sure to read this information carefully each time. Talk to your telephone betting clerk regarding the use of this medicine in children. Special care may be needed. What side effects may I notice from receiving this medicine? Side effects that you should report to your doctor or health healthcare administrator as soon as possible: allergic reactions like skin rash, itching or hives, swelling of the face, lips, or tongue black or bloody stools, blood in the urine or in vomit breathing problems changes in vision chest pain general ill feeling or flu-like symptoms nausea or vomiting redness, blistering, peeling or loosening of the skin, including inside the mouth slurred speech or weakness on one side of the body stomach pain unexplained weight gain or swelling unusually weak or tired yellowing of eyes or skin Side effects that usually do not require medical attention (report to your doctor or health healthcare administrator if they continue or are bothersome): constipation or diarrhea dizziness gas or heartburn stomach upset What may interact with this medicine? Do not take this medicine with any of the following medications: cidofovir ketorolac methotrexate pemetrexed This medicine may also interact with the following medications: alcohol aspirin diuretics lithium other drugs for inflammation like prednisone warfarin What if I miss a dose? If you miss a dose, take it as soon as you can. If it is almost time for your next dose, take only that dose. Do not take double or extra doses. Where should I keep my medicine? Keep out of the reach of children. Store at room temperature between 15 and 30 degrees C (59 and 86 degrees F). Keep container tightly closed. Throw away any unused medicine after the expiration date. What should I tell my health care provider before I take this medicine? They need to know if you have any of these conditions: asthma cigarette smoker drink more than 3 alcohol containing drinks a day heart disease or circulation problems such as heart failure or leg edema (fluid retention) high blood pressure kidney disease liver disease stomach bleeding or ulcers an unusual or allergic reaction to ibuprofen, aspirin, other NSAIDS, other medicines, foods, dyes, or preservatives or trying to get breast-feeding What should I watch for while using this medicine? Tell your doctor or healthcare professional if your symptoms do not start to get better or if they get worse. This medicine does not prevent heart attack or stroke. In fact, this medicine may increase the chance of a heart attack or stroke. The chance may increase with longer use of this medicine and in people who have heart disease. If you take aspirin to prevent heart attack or stroke, talk with your doctor or health healthcare administrator. Do not take other medicines that contain aspirin, ibuprofen, or naproxen with this medicine. Side effects such as stomach upset, nausea, or ulcers may be more likely to occur. Many medicines available without a prescription should not be taken with this medicine. This medicine can cause ulcers and bleeding in the stomach and intestines at any time during treatment. Ulcers and bleeding can happen without warning symptoms and can cause . To reduce your risk, do not smoke cigarettes or drink alcohol while you are taking this medicine. You may get drowsy or dizzy. Do not drive, use machinery, or do anything that needs mental alertness until you know how this medicine affects you. Do not stand or sit up quickly, especially if you are an older patient. This reduces the risk of dizzy or fainting spells. This medicine can cause you to bleed more easily. Try to avoid damage to your teeth and gums when you brush or floss your teeth. You have been given the following additional information: Abscess, Incision And Drainage Cellulitis MRSA Skin Infection, Suspected Or Confirmed Sulfamethoxazole, Trimethoprim Oral tablet Clindamycin Hydrochloride Oral capsule Hydrocodone Bitartrate, Acetaminophen Oral tablet Ibuprofen Oral tablet (Electronically signed by Charo Purcell A.R.N.P. 05/07/2017 20:45)
--- NOTE | 2017-05-07 20:45 | ED MAR SUMMARY ---
..... Medication Administration Record [facility] [address] [place] [address] Patient: CARLA NEAL Visit ID: [id number] 41y, M Weight: 98.4 kg Height/Length: 72 in BMI: 29.4 ALLERGIES: No Known Drug Allergy Given 15:56 05/07/2017 Niecy Cervantes R.N. Medication Administered: LIDOCAINE [INJECTION], Dose: 2 % Injectable Injection. Medication Ordered: Lidocaine Injection 1% plain (NOW). Given 16:05/07/2017 Niecy Cervantes R.N. Medication Administered: ANCEF [IM] (CEFAZOLIN SODIUM), Dose: 1 gm IM. Medication Ordered: Ancef IM 1 gm (NOW). Given 16:05/07/2017 Niecy Cervantes R.N. Medication Administered: CLINDAMYCIN [IM], Dose: 600 mg IM. Medication Ordered: Clindamycin IM 600 mg (NOW).
--- NOTE | 2017-05-07 20:45 | ED MED RECONCILIATION SUMMARY ---
Patient: CARLA NEAL Medication Reconciliation Report [facility] VisitID: [id number] [address] [place] [address] 41y, M Registration Date/Time: 05/07/2017 Weight: 98.4 kg Height/Length: 72 in. BMI: 29.4 ALLERGIES: No Known Drug Allergy The patient's Home Medications are listed below: THE FOLLOWING MEDICATIONS NEED TO BE RECONCILED: Methadone HCl Oral 108mg, daily The source(s) of the original Home Medication information: Not obtained. The following Medications were given to the patient in the Emergency Department: Ancef [IM] IM 1 gm, administered: 05/07/2017 4:21:00 PM Clindamycin [IM] IM 600 mg, administered: 05/07/2017 4:21:00 PM Lidocaine [Injection] Injection 2 %, administered: 05/07/2017 3:56:00 PM The following Medications were prescribed to the patient: Bactrim DS 800 mg / 160 mg: take 1 tablet orally every 12 hours for 10 days. No refill. -- Charo Purcell A.R.N.P. Clindamycin 150 mg: take 1 capsule orally every 6 hours for 10 days. No refill. -- Charo Purcell A.R.N.P. [place] 5 mg / 325 mg tablets: take 1 orally every 6 hours as needed for pain. Dispense five (5). No refill. -- Charo Purcell A.R.N.P. Motrin 800 mg tablets: take 1 tablet orally every 8 hours as needed for pain. Dispense thirty (30). No refills. Substitution is permissible. -- Charo Purcell A.R.N.P.
--- NOTE | 2017-05-07 20:45 | ED MED RECONCILIATION SUMMARY ---
Patient: CARLA NEAL Medication Reconciliation Report [facility] VisitID: [id number] [address] [place] [address] 41y, M Registration Date/Time: 05/07/2017 Weight: 98.4 kg Height/Length: 72 in. BMI: 29.4 ALLERGIES: No Known Drug Allergy The patient's Home Medications are listed below: THE FOLLOWING MEDICATIONS NEED TO BE RECONCILED: Methadone HCl Oral 108mg, daily The source(s) of the original Home Medication information: Not obtained. The following Medications were given to the patient in the Emergency Department: Ancef [IM] IM 1 gm, administered: 05/07/2017 4:21:00 PM Clindamycin [IM] IM 600 mg, administered: 05/07/2017 4:21:00 PM Lidocaine [Injection] Injection 2 %, administered: 05/07/2017 3:56:00 PM The following Medications were prescribed to the patient: Bactrim DS 800 mg / 160 mg: take 1 tablet orally every 12 hours for 10 days. No refill. -- Charo Purcell A.R.N.P. Clindamycin 150 mg: take 1 capsule orally every 6 hours for 10 days. No refill. -- Charo Purcell A.R.N.P. [place] 5 mg / 325 mg tablets: take 1 orally every 6 hours as needed for pain. Dispense five (5). No refill. -- Charo Purcell A.R.N.P. Motrin 800 mg tablets: take 1 tablet orally every 8 hours as needed for pain. Dispense thirty (30). No refills. Substitution is permissible. -- Charo Purcell A.R.N.P.
--- NOTE | 2017-05-07 20:45 | ED MAR SUMMARY ---
..... Medication Administration Record [facility] [address] [place] [address] Patient: CARLA NEAL Visit ID: [id number] 41y, M Weight: 98.4 kg Height/Length: 72 in BMI: 29.4 ALLERGIES: No Known Drug Allergy Given 15:56 05/07/2017 Niecy Cervantes R.N. Medication Administered: LIDOCAINE [INJECTION], Dose: 2 % Injectable Injection. Medication Ordered: Lidocaine Injection 1% plain (NOW). Given 16:05/07/2017 Niecy Cervantes R.N. Medication Administered: ANCEF [IM] (CEFAZOLIN SODIUM), Dose: 1 gm IM. Medication Ordered: Ancef IM 1 gm (NOW). Given 16:05/07/2017 Niecy Cervantes R.N. Medication Administered: CLINDAMYCIN [IM], Dose: 600 mg IM. Medication Ordered: Clindamycin IM 600 mg (NOW).
== END 2017-05-07 16:32 | disposition home or self-care (01) ==
LOC: ED SRH 13:48
DX: L02.413 Cutaneous abscess of right upper limb (principal); J44.9 Chronic obstructive pulmonary disease, unspecified; I10 Essential (primary) hypertension; F17.210 Nicotine dependence, cigarettes, uncomplicated
CPT/HCPCS: 90131; 90309; 90470